=== PATIENT | female | born 2000 | race Caucasian/White ===

== ENCOUNTER 2020-12-17 20:38 | Emergency (ER) | payer MEDICAID, SELFPAY ==
[2020-12-17] VITALS (10 sets, daily range): BP systolic 121–135; BP diastolic 80–98; PULSE 88–98; RESP 16; TEMP 37.2–37.3; O2SAT 100; BMI 24.8
[2020-12-17 21:06] LABS: Microscopic, Urine URINE MICROSCOPIC (MICROSCOPIC)
[2020-12-17 21:15] LABS: Appearance,Urine CLEAR (Clear); Bilirubin,Urine Negative (Negative); Blood, Urine Negative (Negative); Color,Urine YELLOW (Yellow); Glucose,Urine (UA) 3+ (Negative); Ketones,Urine 1+ (Negative); Leukocyte Esterase,Urine Negative (Negative); Nitrate,Urine Negative (Negative); PH,Urine 6.5 (5.0-8.5); Protein,Urine Negative (Negative); Urobilinogen,Urine 0.2 EU/dl (0.2)
--- NOTE | 2020-12-17 21:15 | HMH.EDNVD ---
ED Disposition Clinical Impression: Nausea alone Disposition: Home, Self-Care Condition on Discharge: Good Instructions: DI for Nausea -- Adult Additional Instructions: fluids and see pcp for follow up Referrals: Aki Guevara [Primary Care Provider] - - Critical Care Critical Care Time: No Attestation: On 12/17/20, the high probability of a clinically significant, sudden or life threatening deterioration of the following system(s) required my full and direct attention, intervention and personal management. The time I documented below is in addition to time spent performing reported procedures but includes the following listed in this critical care notation. Medical Decision Making - Medical Records Medical records reviewed: Yes: I reviewed the patient's medical records. - Sanya Inquiry Pt receiving controlled substance: No Vital Signs: 12/17/20 20:40 Temperature 99.1 F Temperature Source Oral Pulse Rate [Left Radial] 98 H Respiratory Rate 16 Blood Pressure [Right Arm] 125/98 H Blood Pressure Mean [Right Arm] 107 Blood Pressure Source [Right Arm] Automatic Cuff Blood Pressure Position [Right Arm] Sitting 02 Sat by Pulse Oximetry 100 Oxygen Delivery Method Room Air - Lab Data Lab results reviewed: Yes: I reviewed the patient's lab results. Lab Results 12/17/20 20:49: Urine Color Yellow, Urine Appearance Clear, Urine pH 6.5, Ur Specific [place] 1.010, Urine Protein Negative, Urine Glucose (UA) 3+, Urine Ketones 1+, Urine Blood Negative, Urine Nitrate Negative, Urine Bilirubin Negative, Urine Urobilinogen 0.2, Ur Leukocyte Esterase Negative, Urine Mucus Trace 12/17/20 20:49: Urine HCG, Qual Negative 12/17/20 20:49: Urine Opiates Screen Negative, Urine Methadone Screen Negative, Ur Barbituates Screen Negative, Ur Phencyclidine Scrn Negative, Ur Amphetamines Screen Negative, U Benzodiazepines Scrn Negative, Urine Cocaine Screen Negative, U Marijuana (THC) Screen Negative 12/17/20 21:20: WBC 9.5, RBC 4.40, Hgb 11.5 L, Hct 36.7 L, MCV 83.5, MCH 26.1 L, MCHC 31.3 L, RDW 16.1, Plt Count 227, MPV 11.5 H, Neut % (Auto) 69.1, Lymph % (Auto) 22.6, [place] % (Auto) 5.1, Eos % (Auto) 2.1, Baso % (Auto) 1.0, Neut # (Auto) 6.6, Lymph # (Auto) 2.2, [place] # (Auto) 0.5, Eos # (Auto) 0.2, Baso # (Auto) 0.1, ESR 20 12/17/20 21:20: Acetone Level None detected 12/17/20 21:47: Sodium 136, Potassium 3.8, Chloride 102, Carbon Dioxide 24, Anion Gap 13.8, BUN 10, Creatinine 0.70, Estimated Creat Clear 106, Estimated GFR 107, Est GFR ( Amer) 129, Glucose 348 H, Calcium 9.0, Total Bilirubin 0.4, AST 30, ALT 17, Alkaline Phosphatase 96, C-Reactive Protein 7.2 H, Total Protein 7.2, Albumin 4.2, Globulin 3.0, Albumin/Globulin Ratio 1.4, Amylase 65, Lipase 33 Result diagrams: 12/17/20 21:20 12/17/20 21:47 Orders (Tests/Meds): ED MEDICATIONS Generic Name Dose Route Start Last Admin Trade Name Freq PRN Reason Stop Dose Admin Sodium Chloride 1,000 mls @ 999 mls/hr 12/17/20 21:00 12/17/20 22:00 Sod Chlor 0.9% 1000ml Bag IV 12/17/20 22:00 999 mls/hr .[id number] ROCKY Administration Discontinued Medications Generic Name Dose Route Start Last Admin Trade Name Freq PRN Reason Stop Dose Admin Diatrizoate Meglum/Diatrizoate Sod 30 ml 12/17/20 22:13 12/17/20 22:18 Diatrizoate Rahel 66% & Diatrizoate Na 10% 30ml Udc PO 12/17/20 22:14 30 ml ONCE ONE Administration Promethazine HCl 12.5 mg 12/17/20 21:40 12/17/20 22:00 Promethazine Hcl 25mg/Ml 1ml Vial IV 12/17/20 21:41 12.5 mg ONCE ONE Administration Sodium Chloride 25 ml 12/17/20 21:40 12/17/20 22:00 Sodium Chloride 0.9% 25ml Bag IV 12/17/20 21:41 25 ml ONCE ONE Administration ORDERS Category Date Time Status CT abdomen pelvis w con Stat Cat Scan 12/17/20 22:13 Ordered Amylase Stat Lab 12/17/20 21:47 Results C-Reactive Protein Stat Lab 12/17/20 21:47 Results Comprehensive Metabolic Panel Stat Lab 12/17/20 21:47 Results Lipase S
[2020-12-17 21:18] LABS: Mucus,Urine Trace /lpf; Urine Pregnancy, HCG Qual. Negative (Negative)
[2020-12-17 21:26] LABS: Barbiturates Screen,Urine Negative ng/ml (<200); Benzodiazepines Screen,Urine Negative ng/ml (<200)
[2020-12-17 21:27] LABS: Amphetamine/Metha Screen,Urine Negative ng/ml (<1000)
[2020-12-17 21:28] LABS: Cannabinoid Screen,Urine Negative ng/ml (<50); Methadone Screen,Urine Negative ng/ml (<300)
[2020-12-17 21:29] LABS: Cocaine Screen,Urine Negative ng/ml (<300)
[2020-12-17 21:30] LABS: Opiate Screen,Urine Negative ng/ml (<300); Phencyclidine Screen,Urine Negative ng/ml (<25)
[2020-12-17 21:30] LABS: Basophils # 0.1 K/mm3 (0-0.2); Eosinophils # 0.2 K/mm3 (0.0-0.4); Eosinophils % 2.1 % (0.1-12.0); Hematocrit 36.7 % (37.0-47.0); Hemoglobin 11.5 g/dL (12.2-16.2); Lymphocytes # 2.2 K/mm3 (0.7-4.5); Lymphocytes % 22.6 % (10-50); Mean Corpuscular HGB Conc 31.3 g/dL (31.8-35.4); Mean Corpuscular Hemoglobin 26.1 pg (27.0-31.2); Mean Corpuscular Volume 83.5 fl (81-99); Mean Platelet Volume 11.5 fl (7.4-10.4); Monocytes # 0.5 K/mm3 (0.1-1.0); Monocytes % 5.1 % (1.7-9.3); Neutrophils # 6.6 K/mm3 (1.8-7.8); Neutrophils % 69.1 % (37.0-80.0); Platelet Count 227 K/mm3 (142-424); Red Cell Distribution Width 16.1 % (11.5-17.5); White Blood Count 9.5 K/mm3 (4.5-13.0)
[2020-12-17 21:37] LABS: Acetone, Serum (Rapid) None Detected (None Detect)
[2020-12-17 21:58] LABS: Erythrocyte Sedimentation Rate 20 mm/hr (0-20)
[2020-12-17 22:06] LABS: Alanine Aminotransferase 17 U/L (12-78); Albumin Level 4.2 g/dl (3.5-5.0); Albumin/Globulin Ratio 1.4 (1.1-1.8); Alkaline Phosphatase 96 U/L (38-126); Amylase 65 U/L (30-110); Anion Gap 13.8 mEq/L (5-15); Aspartate Amino Transferase 30 U/L (14-36); Bilirubin,Total 0.4 mg/dl (0.2-1.3); Blood Urea Nitrogen 10 mg/dl (7-17); Carbon Dioxide 24 mmol/L (22.0-30.0); Chloride 102 mmol/L (98-107); Creatinine Clearance Estimated 106 mL/min (50-200); Estimated Glomerular Filt Rate 107 ml/min (>60); GFR (African American) 129 ML/MIN (>60); Glucose 348 mg/dl (74-100); Lipase 33 U/L (23-300); Potassium 3.8 mmoL/L (3.5-5.1); Sodium 136 mmol/L (136-145); Total Protein,Serum 7.2 g/dl (6.3-8.2)
[2020-12-17 22:12] LABS: C-Reactive Protein 7.2 mg/L (0-4)
--- NOTE | 2020-12-17 22:25 | PC.NURSE ---
Pt refused PO contrast and said she doesn't want to wait for a ct scan. aware.
[2020-12-17 22:27] LABS: Procalcitonin 0.049 ng/mL (0.0-2.0)
== END 2020-12-17 22:45 | disposition home or self-care (01) ==
PROVIDERS: Emergency Provider Emergency Medicine; PCP Family Medicine
DX: R11.2 Nausea with vomiting, unspecified (principal); Z88.8 Allergy status to other drugs, medicaments and biological substances
CPT/HCPCS: 36415; 80053; 80305; 81001; 81025; 82009; 82150; 83690; 84145; 85025; 85651; 86140; 96365; 96375; 99282

== ENCOUNTER 2021-06-10 13:47 | Emergency (ER) | payer MEDICAID, SELFPAY ==
[2021-06-10 13:47] VITALS: BP 92/59; PULSE 91; RESP 18; TEMP 35.4; O2SAT 98; BMI 20.7
--- NOTE | 2021-06-10 13:54 | PC.NURSE ---
Called [facility] and spoke with medical records and they will be sending them at this time.
--- NOTE | 2021-06-10 14:16 | PC.NURSE ---
MULTIPLE WARM BLANKETS PLACED ON PT DUE TO TEMP
[2021-06-10 14:27] VITALS: BP 85/64; PULSE 84; RESP 18; O2SAT 96
[2021-06-10 14:30] VITALS: BP 90/68; PULSE 66; RESP 12; O2SAT 98
--- NOTE | 2021-06-10 14:36 | HMH.EDGENADL ---
ED Disposition Clinical Impression: Hypoglycemia Disposition: Home, Self-Care Condition on Discharge: Fair Instructions: DI for Hypoglycemia Additional Instructions: Continue checking blood sugar and administering insulin per her usual protocol. Eat regular meals and make sure you drink plenty of fluids. Return to the emergency department if your symptoms return. Follow-up with primary care provider on Sunday. Referrals: Provider,Referral, [Referring] - - Critical Care Critical Care Time: No Attestation: On 06/10/21, the high probability of a clinically significant, sudden or life threatening deterioration of the following system(s) required my full and direct attention, intervention and personal management. The time I documented below is in addition to time spent performing reported procedures but includes the following listed in this critical care notation. Medical Decision Making - Medical Records Medical records reviewed: Yes: I reviewed the patient's medical records. MR Comment: Urgency department note from [facility] reviewed from 06/09/2021 - Sanya Tejada Pt receiving controlled substance: No Vital Signs: 06/10/21 13:47 06/10/21 14:27 06/10/21 14:30 Temperature 95.7 F L Temperature Source Oral Pulse Rate 84 66 Pulse Rate [Radial] 91 H Respiratory Rate 18 18 12 Blood Pressure 85/64 L 90/68 L Blood Pressure [Right Arm] 92/59 L Blood Pressure Mean [Right Arm] 70 Blood Pressure Position [Right Arm] Sitting 02 Sat by Pulse Oximetry 98 96 98 Oxygen Delivery Method Room Air Room Air 06/10/21 15:00 Temperature Temperature Source Pulse Rate 87 Pulse Rate [Radial] Respiratory Rate 12 Blood Pressure 99/72 L Blood Pressure [Right Arm] Blood Pressure Mean [Right Arm] Blood Pressure Position [Right Arm] 02 Sat by Pulse Oximetry 97 Oxygen Delivery Method Room Air - Lab Data Lab Results 06/10/21 14:57: VBG pH 7.30 L, VBG pCO2 37.0, VBG pO2 74.5 H, VBG HCO3 17.6 L, VBG Total CO2 18.8 L, VBG O2 Saturation 92.9 H, VBG Base Excess -8.9 L 06/10/21 15:32: WBC 11.9 H, RBC 4.59, Hgb 12.3, Hct 40.0, MCV 87.0, MCH 26.7 L, MCHC 30.6 L, RDW 15.1, Plt Count 187, MPV 9.7, Neut % (Auto) 88.5 H, Lymph % (Auto) 8.9 L, [place] % (Auto) 2.0, Eos % (Auto) 0.1, Baso % (Auto) 0.5, Neut # (Auto) 10.6 H, Lymph # (Auto) 1.1, [place] # (Auto) 0.2, Eos # (Auto) 0.0, Baso # (Auto) 0.1, Total Counted 100, Neutrophils % (Manual) 74, Band Neutrophils % 7.0, Lymphocytes % (Manual) 16, Monocytes % (Manual) 3, Platelet Estimate Normal, Spherocytes 1+ 06/10/21 15:32: Sodium 133 L, Potassium 4.0, Chloride 96 L, Carbon Dioxide 21 L, Anion Gap 20.0 H, BUN 17, Creatinine 1.30 H, Estimated Creat Clear 47, Estimated GFR 52 L, Est GFR ( Amer) 63, Glucose 272 H, Calcium 9.2, Total Bilirubin 0.2, AST 115 H, ALT 51, Alkaline Phosphatase 128 H, Total Protein 8.3 H, Albumin 4.6, Globulin 3.7 H, Albumin/Globulin Ratio 1.2 06/10/21 15:32: Acetone Level Small 06/10/21 15:32: Phosphorus 3.6, Magnesium 1.4 L 06/10/21 17:51: POC Glucose 260 H 06/10/21 19:01: Urine HCG, Qual Negative Result diagrams: 06/10/21 15:32 06/10/21 15:32 Orders (Tests/Meds): ED MEDICATIONS Discontinued Medications Generic Name Dose Route Start Last Admin Trade Name Zac PRN Reason Stop Dose Admin Sodium Chloride 2,000 ml 06/10/21 14:57 06/10/21 15:35 Sodium Chloride 0.9% 1000ml Bag IV 06/10/21 14:58 2,000 ml BOLUS ONE Administration ORDERS Category Date Time Status Drug Screen,Urine Stat Lab 06/10/21 19:01 Received Urinalysis and Microscopic Stat Lab 06/10/21 19:01 Received - Reevaluation(s) Time: 19:22 Reevaluation #1: Patient still insisting on going home. Mother is at bedside and states patient has told her the same. Mother is comfortable taking her home. She is well versed in the patient's newest regimen for insulin administration and she will administer the insulin tonight. She says s
--- NOTE | 2021-06-10 14:37 | PC.NURSE ---
lab at bedside
[2021-06-10 15:00] VITALS: BP 99/72; PULSE 87; RESP 12; O2SAT 97
[2021-06-10 15:48] LABS: Chloride 96 mmol/L (98-107); Sodium 133 mmol/L (136-145)
[2021-06-10 15:51] LABS: Alanine Aminotransferase 51 U/L (12-78); Alkaline Phosphatase 128 U/L (38-126); Aspartate Amino Transferase 115 U/L (14-36); Bilirubin,Total 0.2 mg/dl (0.2-1.3); Blood Urea Nitrogen 17 mg/dl (7-17); Carbon Dioxide 21 mmol/L (22.0-30.0); Creatinine Clearance Estimated 47 mL/min (50-200); Estimated Glomerular Filt Rate 52 ml/min (>60); GFR (African American) 63 ML/MIN (>60)
[2021-06-10 15:52] LABS: Albumin Level 4.6 g/dl (3.5-5.0); Albumin/Globulin Ratio 1.2 (1.1-1.8); Basophils # 0.1 K/mm3 (0-0.2); Basophils % 0.5 % (0.1-2.0); Calcium 9.2 mg/dl (8.4-10.2); Eosinophils % 0.1 % (0.1-12.0); Globulin 3.7 g/dL (1.3-3.2); Glucose 272 mg/dl (74-100); Hemoglobin 12.3 g/dL (12.2-16.2); Lymphocytes # 1.1 K/mm3 (0.7-4.5); Lymphocytes % 8.9 % (10-50); Mean Corpuscular HGB Conc 30.6 g/dL (31.8-35.4); Mean Corpuscular Hemoglobin 26.7 pg (27.0-31.2); Mean Platelet Volume 9.7 fl (7.4-10.4); Monocytes # 0.2 K/mm3 (0.1-1.0); Neutrophils # 10.6 K/mm3 (1.8-7.8); Neutrophils % 88.5 % (37.0-80.0); Platelet Count 187 K/mm3 (142-424); Red Blood Count 4.59 M/mm3 (4.20-5.40); Red Cell Distribution Width 15.1 % (11.5-17.5); Total Protein,Serum 8.3 g/dl (6.3-8.2); White Blood Count 11.9 K/mm3 (4.8-10.8)
[2021-06-10 15:54] LABS: MANUAL DIFFERENTIAL MANUAL DIFFERENTIAL (MANUAL DIFF)
[2021-06-10 16:01] LABS: Magnesium 1.4 mg/dl (1.6-2.3); Phosphorous 3.6 mg/dl (2.5-4.5)
[2021-06-10 16:15] LABS: Lymphocytes % 16 % (10-50); Monocytes % 3 % (2-9); Neutrophils % 74 % (42-76); Total Cells Counted 100
[2021-06-10 16:16] LABS: Platelet Estimate Normal; Spherocytes 1+
[2021-06-10 16:29] LABS: Acetone, Serum (Rapid) Small (None Detect)
[2021-06-10 16:36] LABS: VBG Base Excess -8.9 mmol/L (-2.4-2.3); VBG HCO3 17.6 mmol/L (23-30); VBG Oxygen Saturation 92.9 % (50-70); VBG PO2 74.5 mmol/L (28-40); VBG Total CO2 18.8 mmol/L (23-27)
[2021-06-10 18:02] LABS: POC Glucose,Bedside 260 (70-110)
[2021-06-10 19:08] LABS: Microscopic, Urine URINE MICROSCOPIC (MICROSCOPIC)
[2021-06-10 19:13] LABS: Appearance,Urine SL CLOUDY (Clear); Blood, Urine Negative (Negative); Color,Urine YELLOW (Yellow); Glucose,Urine (UA) 3+ (Negative); Ketones,Urine 2+ (Negative); Leukocyte Esterase,Urine Negative (Negative); Nitrate,Urine Negative (Negative); Protein,Urine TRACE (Negative); Urobilinogen,Urine 0.2 EU/dl (0.2)
[2021-06-10 19:18] LABS: Urine Pregnancy, HCG Qual. Negative (Negative)
--- NOTE | 2021-06-10 19:21 | PC.NURSE ---
at bedside speaking with pt's mother
[2021-06-10 19:24] LABS: Amphetamine/Metha Screen,Urine Negative ng/ml (<1000)
[2021-06-10 19:25] LABS: Barbiturates Screen,Urine Negative ng/ml (<200)
[2021-06-10 19:26] LABS: Benzodiazepines Screen,Urine Negative ng/ml (<200)
[2021-06-10 19:27] LABS: Cannabinoid Screen,Urine Positive ng/ml (<50)
[2021-06-10 19:28] LABS: Cocaine Screen,Urine Negative ng/ml (<300)
[2021-06-10 19:29] VITALS: BP 112/71; PULSE 73; RESP 17; TEMP 36.8; O2SAT 98
[2021-06-10 19:29] LABS: Opiate Screen,Urine Negative ng/ml (<300)
[2021-06-10 19:30] LABS: Phencyclidine Screen,Urine Negative ng/ml (<25)
[2021-06-10 19:42] LABS: Methadone Screen,Urine Negative ng/ml (<300)
[2021-06-10 19:47] LABS: Bacteria,Urine 2+ /lpf; Bilirubin,Urine 2+ (Negative)
== END 2021-06-10 19:33 | disposition home or self-care (01) ==
PROVIDERS: Emergency Provider Emergency Medicine; PCP Family Medicine
DX: E11.649 Type 2 diabetes mellitus with hypoglycemia without coma (principal); E11.65 Type 2 diabetes mellitus with hyperglycemia; Z79.4 Long term (current) use of insulin
CPT/HCPCS: 80053; 80305; 81001; 81025; 82009; 82803; 82962; 83735; 84100; 85007; 85025; 87086; 96365; 99283

== ENCOUNTER 2021-10-03 05:04 | Emergency (ER) | payer MEDICAID, SELFPAY ==
[2021-10-03 05:05] VITALS: BP 121/86; PULSE 101; RESP 14; TEMP 36.6; O2SAT 97; BMI 18.3
--- NOTE | 2021-10-03 05:45 | HMH.EDGENADL ---
ED Disposition Clinical Impression: Diabetic peripheral neuropathy Disposition: Home, Self-Care Condition on Discharge: Fair Referrals: Aki Guevara [Primary Care Provider] - - Critical Care Critical Care Time: No Attestation: On , the high probability of a clinically significant, sudden or life threatening deterioration of the following system(s) required my full and direct attention, intervention and personal management. The time I documented below is in addition to time spent performing reported procedures but includes the following listed in this critical care notation. Medical Decision Making - Sanya Inquiry Pt receiving controlled substance: Yes Sanya was queried for this patient: No Risks and benefits of using a controlled substance: were not discussed with pt by me Vital Signs: 10/03/21 05:05 Temperature 97.9 F Temperature Source Oral Pulse Rate [Right Radial] 101 H Respiratory Rate 14 Blood Pressure [Right Arm] 121/86 Blood Pressure Mean [Right Arm] 97 Blood Pressure Source [Right Arm] Automatic Cuff Blood Pressure Position [Right Arm] Sitting 02 Sat by Pulse Oximetry 97 Oxygen Delivery Method Room Air Orders (Tests/Meds): ED MEDICATIONS Discontinued Medications Generic Name Dose Route Start Last Admin Trade Name Zac PRN Reason Stop Dose Admin Hydrocodone Bitart/Acetaminophen 1 tab 10/03/21 06:01 10/03/21 06:27 Hydrocodone/Apap 5/325 Mg Tablet PO 10/03/21 06:02 1 tab ONCE ONE Administration Gabapentin 600 mg 10/03/21 06:02 10/03/21 06:27 Gabapentin 600mg Tablet PO 10/03/21 06:03 600 mg ONCE ONE Administration Ketorolac Tromethamine 15 mg 10/03/21 06:01 10/03/21 06:27 Ketorolac 30mg/Ml Vial IM 10/03/21 06:02 15 mg ONCE ONE Administration Lidocaine 1 each 10/03/21 06:03 10/03/21 06:27 Lidocaine 5% Transdermal Patch TP 10/03/21 06:04 1 each ONCE ONE Administration Medical Decision Narrative: 21 yo female w/ type 1 dm and peripheral neuropathy presents to ed for pain. No trauma. No back pain. Pain characteristics and location consistent with diabetic peripheral neuropathy. NV intact. Will give a morning dose of gabapentin, norco 5 x1, toradol, apply lidocaine patches to feet. Pain improved on reassessment. Advised to follow up with pcp at next available appointment for chronic management of peripheral neuropathy. Given ED return precautions. General Adult HPI - General Chief complaint: PAIN Stated complaint: Pain in feet Time Seen by Provider: 10/03/21 05:40 Mode of Arrival: Ambulatory Limitations: No Limitations Description of Symptoms (Recalled from ER Triage Doc. by RN): Pt reports bilateral foot pain for 3 months. She has chronic neuropathy and states her medication just isnt working tonight. - History of Present Illness HPI narrative: 21 yo female w/ hx type 1 dm c/b peripheral neuropathy presents for pain. patient reports 3 months of worsening bilateral lower extremity pain diagnosed as peripheral neuropathy by pcp that especially worsened in last 5 days. states she takes gabapentin 800 mg bid with last dose 12 hours ago. states her pain feels like burning , is primarily in both feet, occasionally radiating to legs and knees. hurts worse to walk and move and when you touch her feet. patient states she has otherwise been in her normal state of health recently. - Related Data Home Medications Medication Instructions Recorded Confirmed Gabapentin [Gabapentin 400mg Cap] 800 mg PO BID 10/03/21 10/03/21 Allergies Allergy/AdvReac Type Severity Reaction Status Date / Time ondansetron Allergy Unknown Verified 12/17/20 21:58 [From ZOFRAN ( HYDROCHLORIDE)] [facility] History - Hepatitis A Screen Drug use history?: No High risk sexual behaviors?: No History of sexually transmitted infection?: No Currently employed?: No Childcare worker?: No Do you have indoor plumbing?: Yes Do you have electricity?: Yes At
[2021-10-03 06:42] VITALS: BP 113/80; PULSE 92; RESP 16; TEMP 36.6; O2SAT 97
== END 2021-10-03 06:47 | disposition home or self-care (01) ==
PROVIDERS: Emergency Provider Student in an Organized Health Care Education/Training Program; PCP Family Medicine
DX: E11.42 Type 2 diabetes mellitus with diabetic polyneuropathy (principal)
CPT/HCPCS: 96372; 99281

== ENCOUNTER 2021-10-09 01:45 | Emergency (ER) | payer MEDICAID, SELFPAY ==
[2021-10-09 01:46] VITALS: BP 136/99; PULSE 98; RESP 16; TEMP 36.7; O2SAT 97; BMI 17.9
--- NOTE | 2021-10-09 02:05 | HMH.EDGENADL ---
ED Disposition Clinical Impression: Diabetic peripheral neuropathy Disposition: Home, Self-Care Condition on Discharge: Good Instructions: DI for Acute Pain -- Adult Additional Instructions: call pcp for follow up Referrals: Aki Guevara [Primary Care Provider] - - Critical Care Critical Care Time: No Attestation: On 10/09/21, the high probability of a clinically significant, sudden or life threatening deterioration of the following system(s) required my full and direct attention, intervention and personal management. The time I documented below is in addition to time spent performing reported procedures but includes the following listed in this critical care notation. Medical Decision Making - Medical Records Medical records reviewed: Yes: I reviewed the patient's medical records. - Sanya Inquiry Pt receiving controlled substance: No Vital Signs: 10/09/21 01:46 Temperature 98.1 F Temperature Source Oral Pulse Rate [Right] 98 H Respiratory Rate 16 Blood Pressure [Right Arm] 136/99 H Blood Pressure Mean [Right Arm] 111 02 Sat by Pulse Oximetry 97 - Lab Data Lab results reviewed: Yes: I reviewed the patient's lab results. General Adult HPI - General Chief complaint: PAIN Stated complaint: Pain in Feet and up to knees;Diabetic Time Seen by Provider: 10/09/21 02:05 Mode of Arrival: Ambulatory Source of Information: Patient, Medical Record Limitations: No Limitations Description of Symptoms (Recalled from ER Triage Doc. by RN): pt c/o bilateral leg pain that now radiates up to knees. pt has hx diabetic neuropathy and was seen in er 1/3 foe same problem. pt contacted pcp and gabapentin was increased but no helping - History of Present Illness HPI narrative: hx of bilat lower ext pain with hx of neuopathy - no fever or other c/o Onset (ago): day(s) Location: lower extremity Severity: moderate Associated symptoms: denies other symptoms - Related Data Home Medications Medication Instructions Recorded Confirmed Gabapentin [Gabapentin 400mg Cap] 800 mg PO BID 10/03/21 10/03/21 Allergies Allergy/AdvReac Type Severity Reaction Status Date / Time ondansetron Allergy Unknown Verified 12/17/20 21:58 [From ZOFRAN ( HYDROCHLORIDE)] [facility] History - Hepatitis A Screen Drug use history?: No High risk sexual behaviors?: No History of sexually transmitted infection?: No Currently employed?: No Childcare worker?: No Do you have indoor plumbing?: Yes Do you have electricity?: Yes Attestation statement:: This patient has been screened for Hepatitis A risk factors. I have reviewed the patient's past medical history: Yes ROS Obtained: Yes All systems reviewed & no additional complaints - Constitutional Constitutional: Denies fever(s) - Eyes Eyes: Denies change in vision - ENT Ears, Nose, Mouth, and Throat: Denies sore throat - Cardiovascular Cardiovascular: Denies chest pain - Respiratory Respiratory: Denies shortness of breath - Gastrointestinal Gastrointestingal: Denies: abdominal pain - Genitourinary Female Genitourinary: Denies hematuria - Musculoskeletal Musculoskeletal: Denies joint pain - Integumentary/Breasts Skin/Breast: Denies rash - Neurologic Neurologic: Reports as per HPI, Denies headache(s), Reports tingling/numbness/burning sensations, Denies seizure-like activity Physical Exam - General General appearance: alert - Head Head exam: normocephalic - Eye Eye exam: Present: PERRL, EOMI - ENT ENT exam: Present: mucous membranes moist - Neck Neck exam: Present: trachea midline - Respiratory Respiratory exam: Absent: respiratory distress - Cardiovascular Cardiovascular exam: Present: regular rate - Abdominal Exam Abdominal exam: Present: soft - Extremities Exam Extremities exam: Absent: calf tenderness - Neurological Exam Neurological exam: Present: alert, CN II-XII intact - Psychiatric Psychiatric exam
[2021-10-09 02:10] VITALS: BP 125/93; PULSE 95; RESP 18; TEMP 36.7; O2SAT 99
== END 2021-10-09 02:32 | disposition home or self-care (01) ==
PROVIDERS: Emergency Provider Emergency Medicine; PCP Family Medicine
DX: E11.42 Type 2 diabetes mellitus with diabetic polyneuropathy (principal); R03.0 Elevated blood-pressure reading, without diagnosis of hypertension; Z79.4 Long term (current) use of insulin; Z79.899 Other long term (current) drug therapy; E78.5 Hyperlipidemia, unspecified
CPT/HCPCS: 99281

== ENCOUNTER 2022-03-11 17:47 | Emergency (ER) | payer MEDICAID, SELFPAY ==
[2022-03-11 18:45] VITALS: BP 94/70; PULSE 68; RESP 18; TEMP 36.7; O2SAT 98; BMI 24.8
--- NOTE | 2022-03-11 19:17 | HMH.EDUTC ---
[facility] [place] Disposition Clinical Impression: Routine lab draw Disposition: Home, Self-Care Condition on Discharge: Good Additional Instructions: Make sure to follow up with your Family Doctor for results and further instructions Return if needed Straight to ER if any life threatening symptoms Referrals: Aki Guevara [Primary Care Provider] - As needed Time of Disposition: 19:33 Medical Decision Making - Sanya Inquiry Pt receiving controlled substance: No Sanya was queried for this patient: No Vital Signs: 03/11/22 18:45 Temperature 98.1 F Temperature Source Oral Pulse Rate [Right Brachial] 68 Respiratory Rate 18 Blood Pressure [Right Arm] 94/70 L Blood Pressure Mean [Right Arm] 78 Blood Pressure Source [Right Arm] Automatic Cuff Blood Pressure Position [Right Arm] Sitting 02 Sat by Pulse Oximetry 98 Oxygen Delivery Method Room Air Orders (Tests/Meds): ORDERS Category Date Time Status Hemoglobin A1C Stat Lab 03/11/22 19:20 Received Medical Decision Narrative: patient did not want to wait for results States that her PCP would get them and call her with further instructions [facility] HPI - General Stated complaint: Need Blood work A1C Time Seen by Provider: 03/11/22 19:17 Mode of Arrival: Ambulatory Source of Information: Patient Limitations: No Limitations Description of Symptoms (Recalled from Triage Doc. by RN): PATIENT REQUESTING TO HAVE A1C DRAWN FOR PCP HEENT Symptoms (Recalled from RN notes): No Resp Symptoms (Recalled from RN notes): No Skin Symptoms (Recalled from RN notes): No MS Symptoms (Recalled from RN notes): No Functional Status (Recalled from RN notes): WNL - History of Present Illness Provider Complaint: Patient states that her PCP wanted her to come in and get an A1C done but he was in [facility] so he told her to come here and get it drawn and send him the results States that she just wants to get an A1C - Related Data Home Medications Medication Instructions Recorded Confirmed Gabapentin [Gabapentin 400mg Cap] 800 mg PO BID 10/03/21 10/09/21 Atorvastatin Calcium [Lipitor 40mg 40 mg PO HS 10/09/21 10/09/21 Tab] Cetirizine HCl [Zyrtec] 10 mg PO DAILY 10/09/21 10/09/21 Ferrous Sulfate [Ferrous Sulfate 325 mg PO DAILY 10/09/21 10/09/21 325mg Tab] Ibuprofen [Ibuprofen 400mg 400 mg PO Q6HP PRN 10/09/21 10/09/21 Tablet] Insulin Glargine,Hum.rec.anlog 35 unit SQ HS 10/09/21 10/09/21 [Basaglar Eliecerikpen U-100] Insulin Lispro [HumaLOG 100 See Protocol SQ ACHS 10/09/21 10/09/21 units/mL 3mL vial (SSI)] Levothyroxine Sodium 100 mcg PO DAILY 10/09/21 10/09/21 [Levothyroxine 100mcg (0.1MG) Tab] Loperamide HCl [Anti-Diarrheal] 2 mg PO Q6 10/09/21 10/09/21 Sennosides/Docusate Sodium 1 tab PO DAILY 10/09/21 10/09/21 [Stimulant Laxative Plus Tablet] cloNIDine HCL [cloNIDine 0.1mg 0.1 mg PO DAILY 10/09/21 10/09/21 Tablet] Allergies Allergy/AdvReac Type Severity Reaction Status Date / Time ondansetron Allergy Unknown Verified 12/17/20 21:58 [From ZOFRAN ( HYDROCHLORIDE)] - Worker's Comp Is this a Worker's Comp case?: No [facility] History - Hepatitis A Screen Attestation statement:: This patient has been screened for Hepatitis A risk factors. I have reviewed the patient's past medical history: Yes ROS Obtained: Yes All systems reviewed & no additional complaints, Yes Systems reviewed as appropriate & no additional complaints - Constitutional Constitutional: Reports system reviewed and no additional complaints, except as docu, Denies body ache, Denies chills, Denies fever(s) - ENT Ears, Nose, Mouth, and Throat: Reports system reviewed and no additional complaints, except as docu - Cardiovascular Cardiovascular: Reports system reviewed and no additional complaints, except as docu - Respiratory Respiratory: Reports system reviewed and no additional complaints, except as docu - Gastrointestinal Gastrointestingal: Repor
[2022-03-11 19:30] VITALS: BP 94/70; PULSE 68; RESP 18; TEMP 36.7; O2SAT 98
[2022-03-11 19:51] LABS: Hemoglobin A1C 8.6 % (4.0-6.0)
== END 2022-03-11 19:33 | disposition home or self-care (01) ==
PROVIDERS: Emergency Provider Nurse Practitioner; PCP Family Medicine
DX: R73.09 Other abnormal glucose (principal); Z79.1 Long term (current) use of non-steroidal anti-inflammatories (NSAID); Z79.4 Long term (current) use of insulin; Z79.899 Other long term (current) drug therapy; Z88.8 Allergy status to other drugs, medicaments and biological substances
CPT/HCPCS: 36415; 83036; 99213; G0463

== ENCOUNTER 2022-03-18 14:01 | Emergency (ER) | payer MEDICAID, SELFPAY ==
[2022-03-18 14:58] VITALS: BP 107/79; PULSE 93; RESP 17; TEMP 36.7; O2SAT 97; BMI 23.8
--- NOTE | 2022-03-18 15:16 | HMH.EDUTC ---
[facility] [place] Clinical Impression: UTI (urinary tract infection) Qualifiers: Urinary tract infection type: site unspecified Hematuria presence: with hematuria Qualified Code(s): N39.0 - Urinary tract infection, site not specified Disposition: Home, Self-Care Condition on Discharge: Good Instructions: DI for Urinary Tract Infection (UTI), Ondansetron, Phenazopyridine Additional Instructions: Drink plenty of fluids. Take tylenol for pain or fever. Take the medications as directed. Follow up with your regular doctor. GO TO THE ER FOR ANY WORSENING SYMPTOMS The pyridium will make your urine turn orange, this is an expected side effect. It will stain your clothes if it comes into contact with them. We will culture the urine. That will tell what bacteria is causing your infection and which antibiotics will treat it best. Sometimes the first antibiotic we prescribe turns out to not work against different bacteria. So, make sure you follow up within 3 days if you are not getting better. Prescriptions: Sulfamethoxazole/Trimethoprim [Bactrim DS tablet] 1 each PO BID 7 Days #14 tab Transmission Status: Received by [id number] Promethazine HCl [Phenergan 25mg tab] 25 mg PO Q6H PRN #15 tab PRN Reason: Nausea And Vomiting Transmission Status: Received by [id number] Phenazopyridine HCl [Pyridium 200mg Tablet] 200 pow PO TID #6 tab Transmission Status: Received by [id number] Referrals: Aki Guevara [Primary Care Provider] - Time of Disposition: 15:28 Medical Decision Making - Medical Records Medical records reviewed: No: I reviewed the patient's medical records. - Sanya Inquiry Pt receiving controlled substance: No Vital Signs: 03/18/22 14:58 03/18/22 15:32 Temperature 98.0 F 98.0 F Temperature Source Oral Pulse Rate 93 H Pulse Rate [Left Radial] 93 H Respiratory Rate 17 17 Blood Pressure 107/79 L Blood Pressure [Right Arm] 107/79 L Blood Pressure Mean [Right Arm] 88 02 Sat by Pulse Oximetry 97 - Lab Data Lab results reviewed: Yes: I reviewed the patient's lab results. Lab Results 03/18/22 15:16: Urine Color Yellow, Urine Appearance Cloudy, Urine pH 6.0, Ur Specific Miller 1.020, Urine Protein 1+, Urine Glucose (UA) 1+, Urine Ketones Negative, Urine Blood 2+, Urine Nitrate Positive A, Urine Bilirubin Negative, Urine Urobilinogen 0.2, Ur Leukocyte Esterase Trace, Tst Clinic Negative Orders (Tests/Meds): ORDERS Category Date Time Status Urine Culture Stat Micro 03/18/22 14:56 Results Medical Decision Narrative: She waited for 50 minutes to be seen in the ER before she switched to the [facility] to be seen. [facility] [place] - General Stated complaint: stomach pains Time Seen by Provider: 03/18/22 15:16 Description of Symptoms (Recalled from Triage Doc. by RN): patient comes in for stomach pains that have been going on for a week. patient states that she does hacve IBS and she thought it was just that. the pain has continued to get worse HEENT Symptoms (Recalled from RN notes): No Resp Symptoms (Recalled from RN notes): No Skin Symptoms (Recalled from RN notes): No MS Symptoms (Recalled from RN notes): No Functional Status (Recalled from RN notes): wnl - History of Present Illness Provider Complaint: She c/o lower abdomen tenderness and urinary frequency for the past 2 days, - Related Data Home Medications Medication Instructions Recorded Confirmed Gabapentin [Gabapentin 400mg Cap] 800 mg PO BID 10/03/21 10/09/21 Atorvastatin Calcium [Lipitor 40mg 40 mg PO HS 10/09/21 10/09/21 Tab] Cetirizine HCl [Zyrtec] 10 mg PO DAILY 10/09/21 10/09/21 Ferrous Sulfate [Ferrous Sulfate 325 mg PO DAILY 10/09/21 10/09/21 325mg Tab] Ibuprofen [Ibuprofen 400mg 400 mg PO Q6HP PRN 10/09/21 10/09/21 Tablet] Insulin Glargine,Hum.rec.anlog 35 unit SQ HS 10/09/21 10/09/21 [Noman Kimble U-100] Insulin Lispro
[2022-03-18 15:17] LABS: Apearance,Urine Cloudy (Clear); Color,Urine Yellow (Yellow); Glucose,Urine (UA) 1+ (Negative); Ketones,Urine Negative (Negative); Protein,Urine 1+ (Negative)
[2022-03-18 15:18] LABS: Bilirubin,Urine Negative (Negative); Blood, Urine 2+ (Negative); UTC Leukocyte Esterase,Urine Trace (Negative); UTC Nitrate,Urine Positive (Negative); UTC Pregnancy Test, Urine Negative (Negative); Urobilinogen,Urine 0.2 EU/dl (0.2)
[2022-03-18 15:32] VITALS: BP 107/79; PULSE 93; RESP 17; TEMP 36.7
== END 2022-03-18 15:39 | disposition home or self-care (01) ==
PROVIDERS: Emergency Provider Nurse Practitioner Family; PCP Family Medicine
DX: N39.0 Urinary tract infection, site not specified (principal); K58.9 Irritable bowel syndrome, unspecified; Z79.4 Long term (current) use of insulin; Z79.899 Other long term (current) drug therapy; Z88.8 Allergy status to other drugs, medicaments and biological substances
CPT/HCPCS: 81003; 81025; 87086; 87088; 87186; 99213; G0463

== ENCOUNTER 2023-08-09 17:08 | Emergency (ER) | payer MEDICAID, SELFPAY ==
[2023-08-09 17:17] VITALS: BP 100/90; PULSE 83; RESP 16; TEMP 36.8; O2SAT 100; BMI 24.8
--- NOTE | 2023-08-09 17:18 | XR_ITS ---
PROCEDURE INFORMATION: Exam: XR Left Foot Exam date and time: 08/09/2023 5:51 PM Age: 23 years old Clinical indication: Pain; Foot; Left; Additional info: Pain, swelling TECHNIQUE: Imaging protocol: Radiologic exam of the left foot. Views: 3 or more views. COMPARISON: CR XR ANKLE LT 2V 08/09/2023 5:51 PM FINDINGS: Bones/joints: No acute fracture or malalignment. Soft tissues: Foot and ankle soft tissue swelling. IMPRESSION: Foot and ankle soft tissue swelling. No acute osseous findings.
--- NOTE | 2023-08-09 17:18 | XR_ITS ---
PROCEDURE INFORMATION: Exam: XR Left Tibia and Fibula Exam date and time: 08/09/2023 5:51 PM Age: 23 years old Clinical indication: Pain; Lower leg; Left; Additional info: Pain, swelling TECHNIQUE: Imaging protocol: Radiologic exam of the left tibia and fibula. Views: 2 views. COMPARISON: CR XR ANKLE LT 2V 08/09/2023 5:51 PM FINDINGS: Bones/joints: No acute fracture or malalignment. Soft tissues: Diffuse left lower extremity soft tissue swelling. IMPRESSION: Diffuse left lower extremity soft tissue swelling. No acute osseous findings.
--- NOTE | 2023-08-09 17:18 | XR_ITS ---
PROCEDURE INFORMATION: Exam: XR Left Ankle Exam date and time: 08/09/2023 5:51 PM Age: 23 years old Clinical indication: Pain; Ankle; Left; Additional info: Pain, swelling TECHNIQUE: Imaging protocol: Radiologic exam of the left ankle. Views: 1 or 2 views. COMPARISON: CR XR FOOT LT MIN 3V 08/09/2023 5:51 PM FINDINGS: Bones/joints: No acute fracture or malalignment. Soft tissues: Foot and ankle soft tissue swelling. IMPRESSION: Foot and ankle soft tissue swelling. No acute osseous findings.
--- NOTE | 2023-08-09 18:29 | HMH.EDGENADL ---
Discharge Plan Disposition Patient Disposition: Home, Self-Care Condition: Good Prescriptions Prescriptions: New naproxen 500 mg tablet 500 mg PO BID Qty: 20 0RF No Action gabapentin 400 MG capsule 800 mg PO BID atorvastatin 40 MG tablet 40 mg PO HS clonidine HCl 0.1 MG tablet 0.1 mg PO DAILY sennosides-docusate sodium 1 EACH tablet 1 tab PO DAILY loperamide 2 MG tablet 2 mg PO Q6 levothyroxine 100 MCG tablet 100 mcg PO DAILY ferrous sulfate 325 MG tablet 325 mg PO DAILY ibuprofen 400 MG tablet 400 mg PO Q6HP PRN (Reason: pain) insulin lispro 100 UNIT/ML solution See Protocol SQ ACHS Protocol: Insulin Corrective High-Dose Regimen Condition: Fingerstick Blood Glucose Dose/Route: Insulin Units Condition: 151-200 mg/dl Dose/Route: 5 units/SQ Condition: 201-250 mg/dl Dose/Route: 7 units/SQ Condition: 251-300 mg/dl Dose/Route: 10 units/SQ Condition: 301-350 mg/dl Dose/Route: 12 units/SQ Condition: 351-400 mg/dl Dose/Route: 15 units/SQ Condition: 401-450 mg/dl Dose/Route: 20 units/SQ Condition: > 450 mg/dl Dose/Route: CALL MD Protocol Text: High Intensity Sliding Scale Insulin insulin glargine 100 UNIT/ML insulin pen 35 unit SQ HS cetirizine 10 MG capsule 10 mg PO DAILY phenazopyridine 200 MG tablet 200 pow PO TID Qty: 6 0RF sulfamethoxazole-trimethoprim 1 EACH tablet 1 each PO BID 7 Days Qty: 14 0RF promethazine 25 MG tablet 25 mg PO Q6H PRN (Reason: Nausea And Vomiting) Qty: 15 0RF Referrals Follow up/Referrals: Edward Magallanes DO [Staff Physician] - See instructions Aki Guevara [Primary Care Provider] - See instructions Activity Restrictions/Add. Instructions Additional Instructions/Restrictions: You were evaluated in the emergency department today. Please use your walking boot as needed for pain. Ice, elevate, and rest your ankle is much as possible. Take Tylenol and naproxen at home as needed for pain and inflammation. Follow-up outpatient with orthopedics. Return to the emergency department for new or worsening symptoms. Clinical Impressions Clinical Impression: Left ankle sprain Instructions Patient Instructions: DI for Ankle Sprain Discharge ED Provider: Anne-Marie Egan General Adult HPI General Chief complaint: PAIN Stated complaint: LT ankle pain Time Seen by Provider: 08/09/23 17:18 Mode of Arrival: Ambulatory Source of Information: Patient Limitations: No Limitations Description of Symptoms (Recalled from ER Triage Doc. by RN): 23 yo F present to ED with left ankle pain symptoms ongoing for 1.5 weeks. pt reports walking down her mothers steps and heard a pop in her ankle. swelling and pain ongoing since then. History of Present Illness HPI narrative: This patient is a 23-year-old female who denies significant past medical history presented to the emergency department for evaluation with concern for left ankle pain. She reports that she felt a pop in her left ankle when going down the steps approximate 1.5 weeks ago. Since then, she has had pain and swelling. It improves with ibuprofen, ice, and elevation, however it always returns. She is having difficulty bearing weight secondary to the pain. She denies any other injuries or concerns. No fevers, redness, warmth, wounds, or other concerns. She has otherwise been well. Related Data Home Medications Medication Instructions Recorded Confirmed gabapentin 400 mg capsule 800 mg PO BID Neuropathy 10/03/21 10/09/21 atorvastatin 40 mg tablet 40 mg PO HS hld 10/09/21 10/09/21 cetirizine 10 mg capsule 10 mg PO DAILY Allergy symptoms 10/09/21 10/09/21 clonidine HCl 0.1 mg tablet 0.1 mg PO DAILY sleep 10/09/21 10/09/21 ferrous sulfate 325 mg (65 mg 325 mg PO DAILY Supplement 10/09/21 10/09/21 iron) tablet ibuprofen 400 mg tablet 400 mg PO Q6HP PRN pain 10/09/21 10/09/21 insulin glargine 100 unit/mL (3 35 u
--- NOTE | 2023-08-09 18:39 | PC.NURSE ---
Pt accepted to [facility] by Dr Mary
[2023-08-09 19:03] VITALS: BP 100/90; PULSE 83; RESP 16; TEMP 36.8
== END 2023-08-09 19:04 | disposition home or self-care (01) ==
PROVIDERS: Emergency Provider Emergency Medicine; PCP Family Medicine
DX: S93.402A Sprain of unspecified ligament of left ankle, initial encounter (principal); M25.572 Pain in left ankle and joints of left foot; X50.0XXA Overexertion from strenuous movement or load, initial encounter
CPT/HCPCS: 73590; 73600; 73630; 99283

== ENCOUNTER 2024-03-18 07:06 | Emergency (ER) | payer MEDICAID, SELFPAY ==
[2024-03-18 07:07] VITALS: BP 121/97; PULSE 83; RESP 16; TEMP 36.7; O2SAT 97; BMI 24.8
--- NOTE | 2024-03-18 07:16 | XR_ITS ---
FINAL REPORT CLINICAL HISTORY: inferior costal margin pain b/l FINDINGS: No acute pulmonary opacity is present. There is no evidence of effusion or pneumothorax. Mediastinum is unremarkable. Heart size is normal. IMPRESSION: No acute abnormality. Reviewed, Interpreted and Dictated by Janet Gonzáles MD Transcribed by Adali Richards Authenticated and . [facility]
--- NOTE | 2024-03-18 07:19 | HMH.EDGENADL ---
Discharge Plan Disposition Patient Disposition: Home, Self-Care Chief Complaint: Abdominal Pain Prescriptions Prescriptions: No Action naproxen 500 mg tablet 500 mg PO BID Qty: 20 0RF gabapentin 400 MG capsule 800 mg PO BID atorvastatin 40 MG tablet 40 mg PO HS clonidine HCl 0.1 MG tablet 0.1 mg PO DAILY sennosides-docusate sodium 1 EACH tablet 1 tab PO DAILY loperamide 2 MG tablet 2 mg PO Q6 levothyroxine 100 MCG tablet 100 mcg PO DAILY ferrous sulfate 325 MG tablet 325 mg PO DAILY ibuprofen 400 MG tablet 400 mg PO Q6HP PRN (Reason: pain) insulin lispro 100 UNIT/ML solution See Protocol SQ ACHS Protocol: Insulin Corrective High-Dose Regimen Condition: Fingerstick Blood Glucose Dose/Route: Insulin Units Condition: 151-200 mg/dl Dose/Route: 5 units/SQ Condition: 201-250 mg/dl Dose/Route: 7 units/SQ Condition: 251-300 mg/dl Dose/Route: 10 units/SQ Condition: 301-350 mg/dl Dose/Route: 12 units/SQ Condition: 351-400 mg/dl Dose/Route: 15 units/SQ Condition: 401-450 mg/dl Dose/Route: 20 units/SQ Condition: > 450 mg/dl Dose/Route: CALL MD Protocol Text: High Intensity Sliding Scale Insulin insulin glargine 100 UNIT/ML insulin pen 35 unit SQ HS cetirizine 10 MG capsule 10 mg PO DAILY phenazopyridine 200 MG tablet 200 pow PO TID Qty: 6 0RF sulfamethoxazole-trimethoprim 1 EACH tablet 1 each PO BID 7 Days Qty: 14 0RF promethazine 25 MG tablet 25 mg PO Q6H PRN (Reason: Nausea And Vomiting) Qty: 15 0RF Referrals Follow up/Referrals: Aki Guevara [Primary Care Provider] - See instructions Activity Restrictions/Add. Instructions Additional Instructions/Restrictions: At this time it was felt you are safe to be discharged home. If new or worsening symptoms please do not hesitate to return the emergency department. Clinical Impressions Clinical Impression: Abdominal pain Instructions Patient Instructions: DI for Acute Abdominal Pain Discharge ED Provider: Eduin Woodward General Adult HPI General Chief complaint: Abdominal Pain Stated complaint: stomach and back pain, pain under ribs Time Seen by Provider: 03/18/24 07:08 Mode of Arrival: Ambulatory Source of Information: Patient Limitations: No Limitations Description of Symptoms (Recalled from ER Triage Doc. by RN): Patient reports having stomach and back pain that woke her up from sleep approx 3-4 hours ago. History of Present Illness HPI narrative: Patient is a 24-year-old female with past medical history of insulin-dependent diabetes, irritable bowel syndrome who presents emergency department for evaluation of stomach pain and back pain. Onset was acute, 4 hours prior to arrival, she has epigastric pain and bilateral inferior costal margin pain that goes through to her back. Past surgical history previous appendectomy. Stooling habits are normal. No other acute complaints at this time. Related Data Home Medications Medication Instructions Recorded Confirmed gabapentin 400 mg capsule 800 mg PO BID Neuropathy 10/03/21 10/09/21 atorvastatin 40 mg tablet 40 mg PO HS hld 10/09/21 10/09/21 cetirizine 10 mg capsule 10 mg PO DAILY Allergy symptoms 10/09/21 10/09/21 clonidine HCl 0.1 mg tablet 0.1 mg PO DAILY sleep 10/09/21 10/09/21 ferrous sulfate 325 mg (65 mg 325 mg PO DAILY Supplement 10/09/21 10/09/21 iron) tablet ibuprofen 400 mg tablet 400 mg PO Q6HP PRN pain 10/09/21 10/09/21 insulin glargine 100 unit/mL (3 35 unit SQ HS Diabetes 10/09/21 10/09/21 mL) subcutaneous pen insulin lispro 100 unit/mL See Protocol SQ ACHS Diabetes 10/09/21 10/09/21 subcutaneous solution levothyroxine 100 mcg tablet 100 mcg PO DAILY thyroid 10/09/21 10/09/21 loperamide 2 mg tablet 2 mg PO Q6 sleep 10/09/21 10/09/21 sennosides 8.6 mg-docusate sodium 1 tab PO DAILY constipation 10/09/21 10/09/21 50 mg tablet Previous Rx's Medication Instructions Recorded phenazopyridine 200 mg tablet 200 pow PO TID #6 tabs 03/18/22 promethazine 25 mg tablet 25 mg PO Q6H PRN Nausea And 03/18/22 Vomiting #15 tabs sulfamethoxazole 800 1 each PO BID 7 days #14 tabs 03/18/22 mg-trimethoprim 160 mg tablet naproxen 500 mg tablet 500 mg PO BID #20 tabs 08/09/23 Allergies Allergy/AdvReac Type Severity Reaction Status Date / Time ondansetron Allergy Unknown Verified 12/17/20 21:58 [From ZOFRAN ( HYDROCHLORIDE)] [facility] Disclaimer: The information contained in this section may have been updated after the patient was seen, as this information can be updated by other users. Social History (Updated 08/09/23 @ 22:16 by Anne-Marie Egan DO) Smoking Status: Unknown if ever smoked alcohol intake: never current occupational status: employed Travel in the last 8 weeks: None ROS Obtained: Yes Systems reviewed as appropriate & no additional complaints except as documented Physical Exam General General appearance: alert and in no apparent distress Head Head exam: atraumatic and normocephalic Eye Eye exam: Present PERRL and EOMI ENT ENT exam: Present mucous membranes moist Neck Neck exam: Present normal inspection Chest Chest inspection: Present normal inspection and symmetric chest wall rise Respiratory Respiratory exam: Present normal lung sounds bilaterally; Absent respiratory distress Cardiovascular Cardiovascular exam: Present regular rate and normal rhythm Abdominal Exam Abdominal exam: Present soft; Absent tenderness Extremities Exam Extremities exam: Present normal inspection Neurological Exam Neurological exam: Present alert Psychiatric Psychiatric exam: Present normal affect Skin Skin exam: Present warm and dry Medical Decision Making Sanya Inquiry Pt receiving controlled substance: No Vital Signs: 03/18/24 07:07 03/18/24 08:02 03/18/24 08:31 Temperature 98.0 F Temperature Source Oral Pulse Rate 74 83 Pulse Rate [Radial] 83 Respiratory Rate 16 Blood Pressure 124/88 100/68 L Blood Pressure [Right Arm] 121/97 H Blood Pressure Mean [Right Arm] 105 Blood Pressure Source [Right Arm] Automatic Cuff Blood Pressure Position [Right Arm] Sitting 02 Sat by Pulse Oximetry 97 97 96 Oxygen Delivery Method Room Air 03/18/24 09:00 Temperature Temperature Source Pulse Rate 81 Pulse Rate [Radial] Respiratory Rate Blood Pressure 103/74 L Blood Pressure [Right Arm] Blood Pressure Mean [Right Arm] Blood Pressure Source [Right Arm] Blood Pressure Position [Right Arm] 02 Sat by Pulse Oximetry 96 Oxygen Delivery Method Lab Data Lab Results 03/18/24 07:24: WBC 9.6, RBC 4.55, Hgb 14.2, Hct 44.1, MCV 96.9, MCH 31.1, MCHC 32.1, RDW 14.2, Plt Count 290, MPV 10.1, Neut % (Auto) 78.8, Lymph % (Auto) 13.7, Giles % (Auto) 4.5, Eos % (Auto) 2.1, Baso % (Auto) 0.8, Neut # (Auto) 7.6, Lymph # (Auto) 1.3, Giles # (Auto) 0.4, Eos # (Auto) 0.2, Baso # (Auto) 0.1, D-Dimer 0.28, Sodium 134 L, Potassium 4.3, Chloride 98, Carbon Dioxide 30, Anion Gap 10.3, BUN 13, Creatinine 1.10 H, Estimated Creat Clear 65, Estimated GFR 61, Est GFR ( Amer) 74, Glucose 318 H, Calcium 9.3, Total Bilirubin 0.6, AST 104 H, ALT 81 H, Alkaline Phosphatase 100, Troponin I < 0.01, Total Protein 7.9, Albumin 4.5, Globulin 3.4 H, Albumin/Globulin Ratio 1.3, Lipase 51, Serum HCG, Qual Negative 03/18/24 08:01: Urine Color Yellow, Urine Appearance Clear, Urine pH 6.5, Ur Specific [place] 1.020, Urine Protein Negative, Urine Glucose (UA) 2+, Urine Ketones 1+, Urine Blood Negative, Urine Nitrate Negative, Urine Bilirubin Negative, Urine Urobilinogen 1.0, Ur Leukocyte Esterase Negative, Urine WBC Occasional, Ur Squamous Epith Cells 5-10, Urine Bacteria Trace 03/18/24 07:24 03/18/24 07:24 Orders (Tests/Meds): ED MEDICATIONS Discontinued Medications Generic Name Dose Route Start Last Admin Trade Name Zac PRN Reason Stop Dose Admin Acetaminophen 1,000 mg 03/18/24 07:19 03/18/24 07:27 Acetaminophen 500mg Tab PO 03/18/24 07:20 1,000 mg ONCE ONE Administration Belladonna Alkaloids 60 ml 03/18/24 07:16 03/18/24 07:26 Belladonna Alkaloids 60 Ml Ml PO 03/18/24 07:17 60 ml ONCE ONE Administration Dicyclomine HCl 20 mg 03/18/24 07:19 03/18/24 07:27 Dicyclomine 10mg Capsule PO 03/18/24 07:20 20 mg ONCE ONE Administration Ketorolac Tromethamine 30 mg 03/18/24 07:16 03/18/24 07:26 Ketorolac 30mg/Ml Vial IV 03/18/24 07:17 30 mg ONCE ONE Administration Metoclopramide HCl 10 mg 03/18/24 08:54 03/18/24 09:36 Metoclopramide Hcl 10mg/2ml Vial IVP 03/18/24 08:55 Not Given ONCE ONE Promethazine HCl 12.5 mg 03/18/24 07:16 03/18/24 07:26 Promethazine Hcl 25mg/Ml 1ml Vial IV 03/18/24 07:17 12.5 mg ONCE ONE Administration Sodium Chloride 25 ml 03/18/24 07:16 03/18/24 07:27 Sodium Chloride 0.9% 25ml Bag IV 03/18/24 07:17 25 ml ONCE ONE Administration ORDERS Category Date Time Status CXR --portable [XR chest portable] Stat Exams 03/18/24 07:16 Taken CBC w/Auto Diff [Complete Blood Count Auto Diff] Stat Lab 03/18/24 07:24 Completed CMP [Comprehensive Metabolic Panel] Stat Lab 03/18/24 07:24 Completed D-Dimer Stat Lab 03/18/24 07:24 Completed HCG Qualitative, Serum Stat Lab 03/18/24 07:24 Completed Lipase Stat Lab 03/18/24 07:24 Completed Trop I [Troponin I] Stat Lab 03/18/24 07:24 Completed Troponin I Q3H Lab 03/18/24 10:30 Ordered Troponin I Q3H Lab 03/18/24 13:30 Ordered UA [Urinalysis and Microscopic] Stat Lab 03/18/24 08:01 Completed ECG Data Tracing #1: Independently interpreted by me, rate 76, rhythm is regular, axis is normal, no ST elevation. Initial local contiguous leads, QTc 388. Medical Decision Narrative: In summary patient is a 24-year-old female past medical history described above who presents emergency department for evaluation of epigastric pain, back pain, inferior costal margin chest pain. Patient is hemodynamically stable nontoxic-appearing upon arrival, afebrile. Differential diagnosis includes pancreatitis, nonspecific viral syndrome, worsening of irritable bowel syndrome, pulmonary embolism, among others. Workup be conducted with hematologic labs, chest x-ray, EKG, urinalysis. Initial inventions include Phenergan, multimodal pain control. Initial workup reviewed by me, hematologic labs are nonactionable, D-dimer excludes pulmonary embolism and low risk dissection, no MARY or critical electrolyte abnormality, mild persistent transaminitis, initial troponin undetectably low. Patient has hyperglycemia without elevated anion gap for which she is already on insulin and was made aware. Urinalysis interpreted by me and not consistent with infection. Upon repeat evaluation patient was resting comfortably had underwent p.o. trial was successful. Given this patient is appropriate for discharge at this time was given return precautions. Critical Care Critical Care Time Critical Care Time: No
[2024-03-18] MEDS: BELLADONNA ALKALOIDS 60 ML ML PO (07:26)
[2024-03-18] MEDS: KETOROLAC 30MG/ML VIAL 30 MG IV (07:26)
[2024-03-18] MEDS: PROMETHAZINE HCL 25MG/ML 1ML VIAL 12.5 MG IV (07:26)
[2024-03-18] MEDS: SODIUM CHLORIDE 0.9% 25ML BAG 25 ML IV (07:27)
[2024-03-18] MEDS: ACETAMINOPHEN 500MG TAB 1000 MG PO (07:27)
[2024-03-18] MEDS: DICYCLOMINE 10MG CAPSULE 20 MG PO (07:27)
--- NOTE | 2024-03-18 07:29 | ECG_ITS ---
APPROVED REPORT Exam: Resting ECG HR:76 bpm ECG Measurements Heart Rate 76 AXES GA 156 P 52 QRSd 80 QRS 6 QT 357 T 61 QTc 388 Conclusion SINUS RHYTHM LOW QRS VOLTAGE IN PRECORDIAL LEADS [QRS DEFLECTION < 1.0 mV IN CHEST LEADS] BORDERLINE ECG Electronically signed by : SHANTHI CULLEN, 03/18/2024 13:56:56
[2024-03-18 07:41] LABS: Chloride 98 mmol/L (98-107); Sodium 134 mmol/L (136-145)
[2024-03-18 07:42] LABS: Potassium 4.3 mmoL/L (3.5-5.1)
[2024-03-18 07:44] LABS: Alanine Aminotransferase 81 U/L (12-78); Albumin Level 4.5 g/dl (3.5-5.0); Alkaline Phosphatase 100 U/L (38-126); Anion Gap 10.3 mEq/L (5-15); Aspartate Amino Transferase 104 U/L (14-36); Bilirubin,Total 0.6 mg/dl (0.2-1.3); Blood Urea Nitrogen 13 mg/dl (7-17); Carbon Dioxide 30 mmol/L (22.0-30.0); Creatinine Clearance Estimated 65 mL/min (50-200); Estimated Glomerular Filt Rate 61 ml/min (>60); GFR (African American) 74 ML/MIN (>60); Globulin 3.4 g/dL (1.3-3.2); Lipase 51 U/L (23-300); Total Protein,Serum 7.9 g/dl (6.3-8.2)
[2024-03-18 07:45] LABS: Albumin/Globulin Ratio 1.3 (1.1-1.8); Calcium 9.3 mg/dl (8.4-10.2); Glucose 318 mg/dl (74-100)
[2024-03-18 07:55] LABS: Basophils # 0.1 K/mm3 (0-0.2); Basophils % 0.8 % (0.1-2.0); Eosinophils # 0.2 K/mm3 (0.0-0.4); Eosinophils % 2.1 % (0.1-12.0); HCG Qualitative, Serum Negative (Negative); Hematocrit 44.1 % (37.0-47.0); Hemoglobin 14.2 g/dL (12.2-16.2); Lymphocytes # 1.3 K/mm3 (0.7-4.5); Lymphocytes % 13.7 % (10-50); Mean Corpuscular HGB Conc 32.1 g/dL (31.8-35.4); Mean Corpuscular Hemoglobin 31.1 pg (27.0-31.2); Mean Corpuscular Volume 96.9 fl (81-99); Mean Platelet Volume 10.1 fl (7.4-10.4); Monocytes # 0.4 K/mm3 (0.1-1.0); Monocytes % 4.5 % (1.7-9.3); Neutrophils # 7.6 K/mm3 (1.8-7.8); Neutrophils % 78.8 % (37.0-80.0); Platelet Count 290 K/mm3 (142-424); Red Blood Count 4.55 M/mm3 (4.20-5.40); Red Cell Distribution Width 14.2 % (11.5-17.5); White Blood Count 9.6 K/mm3 (4.8-10.8)
[2024-03-18 08:02] VITALS: BP 124/88; PULSE 74; O2SAT 97
[2024-03-18 08:04] LABS: Microscopic, Urine URINE MICROSCOPIC (MICROSCOPIC)
[2024-03-18 08:05] LABS: Troponin I < 0.01 ng/ml (0.00-0.034)
[2024-03-18 08:08] LABS: Appearance,Urine CLEAR (Clear); Bilirubin,Urine Negative (Negative); Blood, Urine Negative (Negative); Color,Urine YELLOW (Yellow); Glucose,Urine (UA) 2+ (Negative); Ketones,Urine 1+ (Negative); Leukocyte Esterase,Urine Negative (Negative); Nitrate,Urine Negative (Negative); PH,Urine 6.5 (5.0-8.5); Protein,Urine Negative (Negative)
[2024-03-18 08:31] VITALS: BP 100/68; PULSE 83; O2SAT 96
[2024-03-18 08:32] LABS: WBC,Urine Occasional #/hpf (0-3)
[2024-03-18 08:33] LABS: Bacteria,Urine Trace /lpf
[2024-03-18 09:00] VITALS: BP 103/74; PULSE 81; O2SAT 96
[2024-03-18 09:23] LABS: D-Dimer 0.28 ug/mL (0.0-0.5)
[2024-03-18 10:20] VITALS: BP 103/74; PULSE 81; RESP 18; TEMP 36.7; O2SAT 96
== END 2024-03-18 10:21 | disposition home or self-care (01) ==
PROVIDERS: Emergency Provider Emergency Medicine; PCP Family Medicine
DX: R10.13 Epigastric pain (principal); M54.6 Pain in thoracic spine; R74.01 Elevation of levels of liver transaminase levels; E11.65 Type 2 diabetes mellitus with hyperglycemia; Z79.4 Long term (current) use of insulin
CPT/HCPCS: 71045; 80053; 81001; 83690; 84484; 84703; 85025; 85378; 93005; 96374; 96375; 99284; J1885; J2550

== ENCOUNTER 2024-04-25 19:23 | Emergency (ER) | payer MEDICAID, SELFPAY ==
[2024-04-25 19:38] VITALS: BP 104/70; PULSE 87; RESP 16; TEMP 36.9; O2SAT 97; BMI 23.9
[2024-04-25 19:58] VITALS: BP 104/70; PULSE 87; RESP 16; TEMP 36.9; O2SAT 97
--- NOTE | 2024-04-27 20:12 | ED_ITS ---
Discharge Plan Disposition Patient Disposition: Home, Self-Care Condition: Good Prescriptions Prescriptions: No Action naproxen 500 mg tablet 500 mg PO BID Qty: 20 0RF gabapentin 400 MG capsule 800 mg PO BID atorvastatin 40 MG tablet 40 mg PO HS clonidine HCl 0.1 MG tablet 0.1 mg PO DAILY sennosides-docusate sodium 1 EACH tablet 1 tab PO DAILY loperamide 2 MG tablet 2 mg PO Q6 levothyroxine 100 MCG tablet 100 mcg PO DAILY ferrous sulfate 325 MG tablet 325 mg PO DAILY ibuprofen 400 MG tablet 400 mg PO Q6HP PRN (Reason: pain) insulin lispro 100 UNIT/ML solution See Protocol SQ ACHS Protocol: Insulin Corrective High-Dose Regimen Condition: Fingerstick Blood Glucose Dose/Route: Insulin Units Condition: 151-200 mg/dl Dose/Route: 5 units/SQ Condition: 201-250 mg/dl Dose/Route: 7 units/SQ Condition: 251-300 mg/dl Dose/Route: 10 units/SQ Condition: 301-350 mg/dl Dose/Route: 12 units/SQ Condition: 351-400 mg/dl Dose/Route: 15 units/SQ Condition: 401-450 mg/dl Dose/Route: 20 units/SQ Condition: > 450 mg/dl Dose/Route: CALL MD Protocol Text: High Intensity Sliding Scale Insulin insulin glargine 100 UNIT/ML insulin pen 35 unit SQ HS cetirizine 10 MG capsule 10 mg PO DAILY phenazopyridine 200 MG tablet 200 pow PO TID Qty: 6 0RF sulfamethoxazole-trimethoprim 1 EACH tablet 1 each PO BID 7 Days Qty: 14 0RF promethazine 25 MG tablet 25 mg PO Q6H PRN (Reason: Nausea And Vomiting) Qty: 15 0RF Referrals Follow up/Referrals: Cisco Ramos MD [Staff Physician] - See instructions Aki Guevara [Primary Care Provider] - See instructions Activity Restrictions/Add. Instructions Additional Instructions/Restrictions: Drink plenty of fluids. Take tylenol or ibuprofen for pain. Follow up with your regular doctor. Follow up with gynecology. I put in a referral to Dr. Ramos. Please call his office or you light armored reconnaissance officer of choice to make an appointment. GO TO THE ER FOR ANY WORSENING SYMPTOMS Clinical Impressions Clinical Impression: Menorrhagia Instructions Patient Instructions: Heavy Menstrual Bleeding, DI for Menorrhagia Print Language Print Language: Iranian Discharge ED Provider: Brendan Glover [facility] [place], [place] HPI General Stated complaint: vaginal bleeding Mode of Arrival: Ambulatory Source of Information: Patient Limitations: No Limitations Time Seen by Provider: 04/25/24 19:55 Description of Symptoms (Recalled from Triage Doc. by RN): Complaint of having her monthly period for a month now. HEENT Symptoms (Recalled from RN notes): No Resp Symptoms (Recalled from RN notes): No Skin Symptoms (Recalled from RN notes): No MS Symptoms (Recalled from RN notes): No Functional Status (Recalled from RN notes): wnl Related Data Home Medications ?Medication ?Instructions ?Recorded ?Confirmed gabapentin 400 mg capsule 800 mg PO BID Neuropathy 10/03/21 10/09/21 atorvastatin 40 mg tablet 40 mg PO HS hld 10/09/21 10/09/21 cetirizine 10 mg capsule 10 mg PO DAILY Allergy symptoms 10/09/21 10/09/21 clonidine HCl 0.1 mg tablet 0.1 mg PO DAILY sleep 10/09/21 10/09/21 ferrous sulfate 325 mg (65 mg 325 mg PO DAILY Supplement 10/09/21 10/09/21 iron) tablet ibuprofen 400 mg tablet 400 mg PO Q6HP PRN pain 10/09/21 10/09/21 insulin glargine 100 unit/mL (3 35 unit SQ HS Diabetes 10/09/21 10/09/21 mL) subcutaneous pen insulin lispro 100 unit/mL See Protocol SQ ACHS Diabetes 10/09/21 10/09/21 subcutaneous solution levothyroxine 100 mcg tablet 100 mcg PO DAILY thyroid 10/09/21 10/09/21 loperamide 2 mg tablet 2 mg PO Q6 sleep 10/09/21 10/09/21 sennosides 8.6 mg-docusate sodium 1 tab PO DAILY constipation 10/09/21 10/09/21 50 mg tablet Previous Rx's ?Medication ?Instructions ?Recorded phenazopyridine 200 mg tablet 200 pow PO TID #6 tabs 03/18/22 promethazine 25 mg tablet 25 mg PO Q6H PRN Nausea And 03/18/22 Vomiting #15 tabs sulfamethoxazole 800 1 each PO BID 7 days #14 tabs 03/18/22 mg-trimethoprim 160 mg tablet naproxen 500 mg tablet 500 mg PO BID #20 tabs 08/09/23 Allergies Allergy/AdvReac Type Severity Reaction Status Date / Time ondansetron Allergy Unknown Verified 12/17/20 21:58 [From ZOFRAN ( HYDROCHLORIDE)] Worker's Comp Is this a Worker's Comp case?: No [facility]SH [facility] Disclaimer: The information contained in this section may have been updated after the patient was seen, as this information can be updated by other users. Social History (Updated 08/09/23 @ 22:16 by Anne-Marie Egan DO) Smoking Status: Unknown if ever smoked alcohol intake: never current occupational status: employed Travel in the last 8 weeks: None ROS Obtained: Yes All systems reviewed & no additional complaints except as documented Constitutional Constitutional: Denies chills and Denies fever(s) Eyes Eyes: Denies eye discharge ENT Ears, Nose, Mouth, and Throat: Denies dizziness, Denies otalgia and Denies sore throat Cardiovascular Cardiovascular: Denies chest pain Respiratory Respiratory: Denies shortness of breath, Denies chest congestion, Denies cough, Denies stridor and Denies wheezing Gastrointestinal Gastrointestingal: Denies nausea or vomiting Musculoskeletal Musculoskeletal: Reports system reviewed and no additional complaints, except as documented and Denies arthralgias Integumentary/Breasts Skin/Breast: Denies rash Neurologic Neurologic: Denies dizziness and Denies paresthesias Allergic/Immunologic Allergic/Immunologic: Denies wheezing Physical Exam General General appearance: alert and in no apparent distress Head Head exam: atraumatic, normocephalic and normal inspection Eye Eye exam: Present normal appearance, PERRL and EOMI ENT ENT exam: Present normal exam, normal oropharynx, mucous membranes moist, TM's normal bilaterally and normal external ear exam Neck Neck exam: Present normal inspection, full ROM and trachea midline; Absent meningismus or lymphadenopathy Chest Chest inspection: Present normal inspection and symmetric chest wall rise; Absent tenderness Respiratory Respiratory exam: Present normal lung sounds bilaterally; Absent respiratory distress Cardiovascular Cardiovascular exam: Present regular rate and normal rhythm; Absent JVD Abdominal Exam Abdominal exam: Present soft and normal bowel sounds; Absent distention, tenderness or guarding Extremities Exam Extremities exam: Present normal inspection, full ROM and normal capillary refill; Absent calf tenderness Back Exam Back exam: Present normal inspection; Absent tenderness Neurological Exam Neurological exam: Present alert and oriented X3 Psychiatric Psychiatric exam: Present normal affect and normal mood Skin Skin exam: Present warm, dry, intact and normal color Lymphatic Lymphatic Findings: no adenopathy Medical Decision Making Medical Records Medical records reviewed: No I reviewed the patient's medical records. Sanya Inquiry Pt receiving controlled substance: No Vital Signs: 04/25/24 19:38 04/25/24 19:58 Temperature 98.4 F 98.4 F Temperature Source Oral Oral Pulse Rate 87 Pulse Rate [Radial] 87 Respiratory Rate 16 16 Blood Pressure 104/70 L Blood Pressure [Right Arm] 104/70 L Blood Pressure Mean [Right Arm] 81 Blood Pressure Source Automatic Cuff Blood Pressure Source [Right Arm] Automatic Cuff Blood Pressure Position Sitting Blood Pressure Position [Right Arm] Sitting 02 Sat by Pulse Oximetry 97 Oxygen Delivery Method Room Air Room Air Lab Data Lab results reviewed: Yes I reviewed the patient's lab results.
== END 2024-04-25 19:59 | disposition home or self-care (01) ==
PROVIDERS: Emergency Provider Nurse Practitioner Family; PCP Family Medicine
DX: N92.0 Excessive and frequent menstruation with regular cycle (principal)
CPT/HCPCS: 99212; 99213; G0463

== ENCOUNTER 2025-07-06 16:36 | Emergency (ER) | payer MEDICAID, SELFPAY ==
--- OUTSIDE RECORDS SUMMARY | 2005-04-21 | XMS_ITS | Encounter Summary ---
Author Organization [facility] Address [facility] [place] [address] Care Team Providers Care Plant Production Manager Name Role Phone Unavailable Primary Care Provider Unavailabl e Encounter Details Date Type Department Care Team (Late st Contact Info) Description 04/21/2005 Hospital Encounter [facility] Division of Diabetes and Endocrinology [address] [place] [phone] Social History Tobacco Use Types Packs/Day Years Used Date Smoking Tobacco: Never Smokeless Tobacco: Never Alcohol Use Standard Drinks/Week Comments No 0 (1 standard drink = 0.6 oz pur e alcohol) Comments Unknown Sex and Gender Information Value Date Recorded Sex Assigned at Not on file Legal Sex Female 5:17 AM EST Gender Identity Not on file Sexual Orientation Not on file documented as of this encounter Plan of Treatment Not on file documented as of this encounter Visit Diagnoses Not on filedocumented in this encounter
--- OUTSIDE RECORDS SUMMARY | 2005-05-24 | XMS_ITS | Encounter Summary ---
Author Organization [facility] Address [facility] [place] [address] Care Team Providers Care Magazine Designer Name Role Phone Unavailable Primary Care Provider Unavailabl e Encounter Details Date Type Department Care Team (Late st Contact Info) Description 05/24/2005 Hospital Encounter [facility] Division of Diabetes and Endocrinology [address] [place] [phone] Social History Tobacco Use Types Packs/Day [...]
--- OUTSIDE RECORDS SUMMARY | 2005-08-29 01:00 | XMS_ITS | Encounter Summary ---
Author Organization [facility] Address [facility] [place] [address] Care Team Providers Care Senior Erp Consultant Name Role Phone Unavailable Primary Care Provider Unavailabl e Encounter Details Date Type Department Care Team (Late st Contact Info) Description 08/29/2005 Hospital Encounter [facility] Division of Diabetes and Endocrinology [address] [place] [phone] Social History Tobacco Use Types Packs/Day [...]
--- OUTSIDE RECORDS SUMMARY | 2006-02-20 | XMS_ITS | Encounter Summary ---
Author Organization [facility] Address [facility] [place] [address] Care Team Providers Care Standards Engineer Name Role Phone Unavailable Primary Care Provider Unavailabl e Encounter Details Date Type Department Care Team (Late st Contact Info) Description 02/20/2006 Hospital Encounter [facility] Division of Diabetes and Endocrinology [address] [place] [phone] Social History Tobacco Use Types Packs/Day [...] on file documented as of this encounter Miscellaneous Notes * Consent Informed - Edt, Audit [place] - 10/03/2011 10:11 PM EST documented in this encounter Plan of Treatment Not on file documented as of this encounter Visit Diagnoses Not on filedocumented in this encounter
--- OUTSIDE RECORDS SUMMARY | 2006-04-24 | XMS_ITS | Encounter Summary ---
Author Organization [facility] Address [facility] [place] [address] Care Team Providers Care Seamer Elastic Band Name Role Phone Unavailable Primary Care Provider Unavailabl e Encounter Details Date Type Department Care Team (Late st Contact Info) Description 04/24/2006 Hospital Encounter [facility] Division of Diabetes and Endocrinology [address] [place] [phone] Social History Tobacco Use Types Packs/Day [...] as of this encounter Miscellaneous Notes * Orders - Edt, Audit [place] - 07/07/2011 6:41 AM EDT documented in this encounter Plan of Treatment Not on file documented as of this encounter Visit Diagnoses Not on filedocumented in this encounter
--- OUTSIDE RECORDS SUMMARY | 2006-06-21 | XMS_ITS | Encounter Summary ---
Author Organization [facility] Address [facility] [place] [address] Care Team Providers Care Emergency Medicine Medical Director Name Role Phone Unavailable Primary Care Provider Unavailabl e Encounter Details Date Type Department Care Team (Late st Contact Info) Description 06/21/2006 Hospital Encounter [facility] Division of Diabetes and Endocrinology [address] [place] [phone] Social History Tobacco Use Types Packs/Day [...]
--- OUTSIDE RECORDS SUMMARY | 2006-08-31 01:00 | XMS_ITS | Encounter Summary ---
Author Organization [facility] Address [facility] [place] [address] Care Team Providers Care Physiologist Name Role Phone Unavailable Primary Care Provider Unavailabl e Encounter Details Date Type Department Care Team (Late st Contact Info) Description 08/31/2006 Hospital Encounter [facility] Division of Diabetes and Endocrinology [address] [place] [phone] Social History Tobacco Use Types Packs/Day [...]
--- OUTSIDE RECORDS SUMMARY | 2006-12-07 01:00 | XMS_ITS | Encounter Summary ---
Author Organization [facility] Address [address] [place] [address] Care Team Providers Care Mini Shifter Name Role Phone Unavailable Primary Care Provider Unavailabl e Encounter Details Date Type Department Care Team (Late st Contact Info) Description 12/07/[address] [facility] Division of Diabetes and Endocrinology [address] [place] [phone] Social History Tobacco Use Types Packs/Day [...] on file documented as of this encounter Procedures Procedure Name Priority Date/Time Associated Diagnosis Comments HGBA1C BST Routine 12/07/2006 9:36 AM EST documented in this encounter Results * (ABNORMAL) HGBA1C BST (12/07/2006 9:36 AM EST) HGB A1C BST 11.2(H) 3.5 - 6.3 % [facility] Comment: (11/11/99 -- Current) IF RESULT IS < 2.5 OR > 14.0, PHYSICIAN MAY ELECT TO ORDER A HGB A1C BY HPLC FOR A QUANTITATIVE RESULT. THE QUANTITATION REQUIRES A VENOUS BLOOD COLLECTION. 12/07/2006 9:36 AM EST 12/07/2006 9:36 AM EST Narrative [facility] - 12/07/2006 3:26 PM EST Ordered by an unspecified provider. us Audit [place] Edt POINT OF CARE TESTING Final Resu lt [facility] documented in this encounter Visit Diagnoses Not on filedocumented in this encounter
--- OUTSIDE RECORDS SUMMARY | 2007-01-30 | XMS_ITS | Encounter Summary ---
Author Organization [facility] Address [address] [place] [address] Care Team Providers Care Manager Test Name Role Phone Unavailable Primary Care Provider Unavailabl e Encounter Details Date Type Department Care Team (Late st Contact Info) Description 01/30/2007 Hospital Encounter [facility] Division of Diabetes and Endocrinology [address] [place] [phone] Social History Tobacco Use Types Packs/Day [...] Date/Time Associated Diagnosis Comments HGBA1C BST Routine 01/30/2007 9:14 AM EDT documented in this encounter Results * (ABNORMAL) HGBA1C BST (01/30/2007 9:14 AM EDT) HGB A1C BST 9.1(H) 3.5 - 6.3 % [facility] Comment: (11/11/99 -- Current) IF RESULT IS < 2.5 OR > 14.0, PHYSICIAN MAY ELECT TO ORDER A HGB A1C BY HPLC FOR A QUANTITATIVE RESULT. THE QUANTITATION REQUIRES A VENOUS BLOOD COLLECTION. 01/30/2007 9:14 AM EDT 01/30/2007 9:14 AM EDT Kenneth Luz M.D. POINT OF CARE TESTIN G Final Result [facility] documented in this encounter Visit Diagnoses Not on filedocumented in this encounter
--- OUTSIDE RECORDS SUMMARY | 2007-03-18 | XMS_ITS | Encounter Summary ---
Author Organization [facility] Address [address] [place] [address] Care Team Providers Care Education Finance Processor Name Role Phone Unavailable Primary Care Provider Unavailabl e Encounter Details Date Type Department Care Team (Late st Contact Info) Description 03/18/2007 Hospital Encounter [facility] Division of Diabetes and Endocrinology [address] [place] [phone] Social History Tobacco Use Types Packs/Day [...] of this encounter Miscellaneous Notes * Consent Other - Edt, Audit [place] - 05/08/2007 12:04 PM EDT documented in this encounter Plan of Treatment Not on file documented as of this encounter Procedures Procedure Name Priority Date/Time Associated Diagnosis Comments TSH Routine 03/18/2007 4:30 PM EDT HGBA1C BST Routine 03/18/2007 3:02 PM EDT documented in this encounter Results * (ABNORMAL) TSH (03/18/2007 4:30 PM EDT) TSH 8.80(H) 0.51 - 4.91 mIU/ML [facility] 03/18/2007 4:30 PM EDT 03/18/2007 4:30 PM EDT us Verify Md Name CHEMISTRY ORDERABLES Final Resul t [facility] * (ABNORMAL) HGBA1C BST (03/18/2007 3:02 PM EDT) HGB A1C BST 9.1(H) 3.5 - 6.3 % [facility] Comment: (11/11/99 -- Current) IF RESULT IS < 2.5 OR > 14.0, PHYSICIAN MAY ELECT TO ORDER A HGB A1C BY HPLC FOR A QUANTITATIVE RESULT. THE QUANTITATION REQUIRES A VENOUS BLOOD COLLECTION. 03/18/2007 3:02 PM EDT 03/18/2007 3:02 PM EDT us Kenneth Luz M.D. POINT OF CARE TESTIN G Final Result [facility] documented in this encounter Visit Diagnoses Not on filedocumented in this encounter
[2025-07-06 16:41] VITALS: BP 134/85; PULSE 83; RESP 20; TEMP 36.8; O2SAT 100; BMI 24.8
--- NOTE | 2025-07-06 16:49 | ED_ITS ---
<Statement entered by José Luis Burciaga MD - 07/06/25 17:37> I was consulted by the SONYA, and we discussed the complexity of the problems being addressed. I approve the treatment and management plan for this patient's care in the emergency department, thus performing a substantive portion of the medical decision making. José Luis Burciaga MD Discharge Plan Disposition Patient Disposition: Home, Self-Care Condition: Good Prescriptions Prescriptions: No Action naproxen 500 mg tablet 500 mg PO BID Qty: 20 0RF gabapentin 400 MG capsule 800 mg PO BID atorvastatin 40 MG tablet 40 mg PO HS clonidine HCl 0.1 MG tablet 0.1 mg PO DAILY sennosides-docusate sodium 1 EACH tablet 1 tab PO DAILY loperamide 2 MG tablet 2 mg PO Q6 levothyroxine 100 MCG tablet 100 mcg PO DAILY ferrous sulfate 325 MG tablet 325 mg PO DAILY ibuprofen 400 MG tablet 400 mg PO Q6HP PRN (Reason: pain) insulin lispro 100 UNIT/ML solution See Protocol SQ ACHS Protocol: Insulin Corrective High-Dose Regimen Condition: Fingerstick Blood Glucose Dose/Route: Insulin Units Condition: 151-200 mg/dl Dose/Route: 5 units/SQ Condition: 201-250 mg/dl Dose/Route: 7 units/SQ Condition: 251-300 mg/dl Dose/Route: 10 units/SQ Condition: 301-350 mg/dl Dose/Route: 12 units/SQ Condition: 351-400 mg/dl Dose/Route: 15 units/SQ Condition: 401-450 mg/dl Dose/Route: 20 units/SQ Condition: > 450 mg/dl Dose/Route: CALL MD Protocol Text: High Intensity Sliding Scale Insulin insulin glargine 100 UNIT/ML insulin pen 35 unit SQ HS cetirizine 10 MG capsule 10 mg PO DAILY phenazopyridine 200 MG tablet 200 pow PO TID Qty: 6 0RF sulfamethoxazole-trimethoprim 1 EACH tablet 1 each PO BID 7 Days Qty: 14 0RF promethazine 25 MG tablet 25 mg PO Q6H PRN (Reason: Nausea And Vomiting) Qty: 15 0RF Referrals Follow up/Referrals: Aki Guevara [Primary Care Provider, Medical] - See instructions Edward Magallanes DO [Staff Physician, Orthopedics] - See instructions Activity Restrictions/Add. Instructions Additional Instructions/Restrictions: Please return to the emergency department with any worsening signs or symptoms. Please utilize ibuprofen and Tylenol rest ice elevation, utilize knee wrap if needed. Please follow-up with orthopedic provider or your family doctor in the upcoming days/weeks. Could benefit from MRI for her knee if symptoms persist. We will call you with any results of your knee x-ray once full report is available. No news is good news. Clinical Impressions Clinical Impression: Injury of knee, left Instructions Patient Instructions: DI for Knee Pain Print Language Print Language: Omani Discharge ED Provider: José Luis Burciaga General Adult HPI General Chief complaint: PAIN Stated complaint: growth on L hand, Fell on L knee 2 weeks ago Time Seen by Provider: 07/06/25 16:49 Mode of Arrival: Ambulatory Source of Information: Patient Description of Symptoms (Recalled from ER Triage Doc. by RN): tao presents to the ED for left knee pain following a fall that happened at home 2 weeks ago. patient tripped over something and the pain just continues to increase. patient also here to have a growth evaluated inbetween 2 fingers on her left hand. the growth has been there for 2 years and just started bothering her recently. 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 Patient has any fever chills chest pain shortness of breath, no numbness or tingling no back pain, no radicular symptomatology, no saddle anesthesia, no urinary bladder or bowel dysfunction, no abdominal pain no nausea no vomiting, no constipation no diarrhea. Of note patient would also like to be evaluated for a cyst , on her palmar aspect of her left hand, most notable to the third digit around the flexor tendon space, patient states this been present for 2 years , patient denies any numbness tingling redness or swelling to the area, denies any overt pain to the area, denies any pain limited range of motion or range of motion deficits. Patient denies any alcohol tobacco or drug use, patient has past medical history consistent T1DM with diabetic polyneuropathy on gabapentin, hyperlipidemia, otherwise unremarkable, initial triage vitals unremarkable. Please note that above description of symptoms, in this electronic medical record under categorization of recalled from ER triage doctor by RN are reflective of an initial nursing assessment, however, is not reflective of my full history and physical exam that was personally taken and clarified. Consequentially, this preceding description of symptoms, which may include the patient's categorized chief complaint in the EMR, do not reflect my personal clinical impression, and the ultimate description of history of present illness and patient stated complaints should be deferred to this section of the note. Unless stated otherwise or congruent with this section of the note, additional signs, symptoms, or incongruence should be interpreted as inaccurate with my clinical impression. Onset (ago): week(s) Related Data Home Medications ?Medication ?Instructions ?Recorded ?Confirmed gabapentin 400 mg capsule 800 mg PO BID Neuropathy 12/2010/09/21 atorvastatin 40 mg tablet 40 mg PO HS hld 10/09/2106/22 cetirizine 10 mg capsule 10 mg PO DAILY Allergy sympt oms 10/09/21 10/09/21 clonidine HCl 0.1 mg tablet 0.1 mg PO DAILY sleep 06/2210/09/21 ferrous sulfate 325 mg (65 mg 325 mg PO DAILY Suppleme nt 10/09/21 10/09/21 iron) tablet ibuprofen 400 mg tablet 400 mg PO Q6HP PRN pain 06/2210/09/21 insulin glargine 100 unit/mL (3 35 unit SQ HS Diabetes 10/09/21 10/09/21 mL) subcutaneous pen insulin lispro 100 unit/mL See Protocol SQ ACHS Diabet es 10/09/21 10/09/21 subcutaneous solution levothyroxine 100 mcg tablet 100 mcg PO DAILY thyroid 10/09/21 10/09/21 loperamide 2 mg tablet 2 mg PO Q6 sleep 10/09/21 sennosides 8.6 mg-docusate sodium 1 tab PO DAILY const ipation 10/09/21 10/09/21 50 mg tablet Previous Rx's ?Medication ?Instructions ?Recorded phenazopyridine 200 mg tablet 200 pow PO TID #6 tabs 0 03/18/22 promethazine 25 mg tablet 25 mg PO Q6H PRN Nausea And 03/18/22 Vomiting #15 tabs sulfamethoxazole 800 1 each PO BID 7 days #14 tab s 03/18/22 mg-trimethoprim 160 mg tablet naproxen 500 mg tablet 500 mg PO BID #20 tabs 08/09 Allergies Allergy/AdvReac Type Severity Reaction Status Date / Time ondansetron (From ZOFRAN ( Allergy Unknown Verified 12/17/20 21:58 HYDROCHLORIDE)) [facility] Disclaimer: The information contained in this section may have been updated after the patient was seen, as this information can be updated by other users. Social History (Updated 08/09/23 @ 22:16 by Anne-Marie Egan DO) Smoking Status: Never smoker alcohol intake: never current occupational status: employed Travel in the last 8 weeks?: None Have you lived/traveled outside US in past 30 days?: No Contact w/someone who lives/traveled outside US past 30 days?: No Exposure to someone with infectious disease in past 14 days?: No Do you have a fever (greater than 100.4 F or 38 C)?: No Have you tested positive for COVID-19?: No Exposed to someone with COVID-19 in past 14 days?: No Do you have a sore throat?: No Do you have a cough?: No Do you have any weakness?: No Do you have any diarrhea?: No Are you experiencing any unusual bleeding?: No Do you have any muscle aches/pain?: No Do you have any abdominal pain?: No Are you experiencing loss of taste or smell?: No Other Medical History Have you received the Flu Vaccine for this season: No Have you received the Pneumonia Vaccine: No ROS Obtained: Yes All systems reviewed & no additional complaints except as documented Physical Exam General General appearance: alert and in no apparent distress Head Head exam: atraumatic and normocephalic Eye Eye exam: Present PERRL and EOMI ENT ENT exam: Present mucous membranes moist Neck Neck exam: Present normal inspection Chest Chest inspection: Present normal inspection and symmetric chest wall rise Respiratory Respiratory exam: Present normal lung sounds bilaterally; Absent respiratory distress Cardiovascular Cardiovascular exam: Present regular rate and normal rhythm Abdominal Exam Abdominal exam: Present soft; Absent tenderness Extremities Exam Extremities exam: Present normal inspection, full ROM and other (There is what appears to be a flexor tendon sheath ganglion cyst to the palmar aspect of the left hand most notable on the third digit, no pain palpation no erythema, no decreased range of motion, otherwise neurovascular intact, patient has mobile patella, no pain to palpation, no midline joint effu); Absent tenderness or joint swelling Back Exam Back exam: Present normal inspection and full ROM Neurological Exam Neurological exam: Present alert and oriented X3 Psychiatric Psychiatric exam: Present normal affect Skin Skin exam: Present warm and dry Medical Decision Making Medical Records Medical records reviewed: Yes I reviewed the patient's medical records. Screening: Per USPSTF and CDC recommendations, given the prevalence of disease in our region, it is our hospital?s policy to screen for HIV and viral Hepatitis for all patients aged 18 and over and those with ongoing risk factors. Sanya Inquiry Pt receiving controlled substance: No Sanya was queried for this patient: No Vital Signs: 07/06/25 16:41 Temperature 98.2 F Temperature Source Oral Pulse Rate [Right Radial] 83 Respiratory Rate 20 Blood Pressure [Right Arm] 134/85 Blood Pressure Mean [Right Arm] 101 Blood Pressure Source [Right Arm] Automatic Cuff Blood Pressure Position [Right Arm] Sitting 02 Sat by Pulse Oximetry 100 Oxygen Delivery Method Room Air Orders (Tests/Meds): ORDERS Category Date Time Status Knee XR left 3 views [XR knee LT 3V] Stat Exams 07/06/25 16:57 Ordered Medical Decision Narrative: 25-year-old female presents the emergency department with multiple complaints, see HPI for detail past medical history, differential diagnose include but not limited to, ganglion cyst, knee sprain/strain, knee fracture, patella fracture among others. I discussed this patient's case with the attending physician Dr. Burciaga Will obtain x-ray of left knee, ganglion cyst has been going on for around 2 years, no pain with range of motion, thought to be flexor sheath ganglion cyst, noninfected, no other red flag signs or symptoms. I along with the attending physician independently reviewed interpret the patient's knee x-ray, no dislocation, no obvious fracture or acute bony abnormality, I discussed the results with the patient. Discussed that full formal radiology report was not yet available for interrogation. Patient like to be discharged home to self-care I think this appropriate shared decision- making was utilized. We will call the patient with any actionable results of her x-ray. I recommend ibuprofen rest ice elevation and Tylenol as needed for symptomatic relief, will also give patient an Ministerio wrap on discharge. Patient ambulates on affected. Patient voiced understanding and agreement with the current treatment plan/discharge plan, follow-up with orthopedic provider in the upcoming days/weeks. Strict ED return precaution given. Critical Care Critical Care Time Critical Care Time: No
--- OUTSIDE RECORDS SUMMARY | 2025-07-06 16:51 | XMS_ITS | Encounter Summary ---
Author Organization [facility] Address [address] [place] [address] Care Team Providers Care Alterations Workroom Clerk Name Role Phone Aubrey Gayle M.D. Primary Care Provider [phone] Reason for Visit * Reason Comments Medication Refill Encounter Details Date Type Department Care Team (Late st Contact Info) Description 12/07/2014 Refill [facility] Division of Diabetes and Endocrinology [address] [place] [phone] Ameena Corey, STRATEGIC PLANNING CONSULTANT-ASSISTANT DIRECTOR OF NURSING [facility] [address] [place] [address] [place] [phone] Medication Refill Social History Tobacco Use Types Packs/Day Years [...] Diagnoses Not on filedocumented in this encounter Care Teams Alterations Workroom Clerk Relationship Specialty Start Date End Date Aubrey Gayle M.D. [address] [address] PCP - General External Family Practice 04/30/12 documented as of this encounter
--- OUTSIDE RECORDS SUMMARY | 2025-07-06 16:51 | XMS_ITS | Clinical Summary ---
Author Organization [facility] Address [address] [place] [address] Care Team Providers Care Etl Consultant Name Role Phone Aubrey Gayle M.D. Primary Care Provider [phone] Source Comments [facility] is fully rolled out with thefollowing exceptions:[facility] Allergies Active Allergy Reactions Criticality Noted Date Comments Malathion 09/21/2011 Dry scalp Zofran Hives 09/21/2011 Medications promethazine (PHENERGAN) 25 MG tablet 25 mg every 6 hours as needed. 2 Active cloNIDine (CATAPRES) 0.1 MG tablet Take 0.2 mg by mouth every 24 hours. Active buPROPion (WELLBUTRIN-XL) 150 MG XL tablet Take 150 mg by mouth 1 time a day. Active cetirizine (ZyrTEC) 10 MG tablet Take 10 mg by mouth 1 time a day. Active ibuprofen (MOTRIN) 200 MG tablet Take 200 mg by mouth every 6 hours as needed. Active ranitidine (ZANTAC) 75 MG tablet Take 75 mg by mouth 2 times a day. Active Sennosides (SENNA LAX PO) Take 1 Tab by mouth every other day. Active glucagon (GLUCAGON EMERGENCY) 1 MG injection kitIndications:T ype I (juvenile type) diabetes mellitus without mention of complication, uncontrolled For severe hypoglycemia or unable to eat or drink 2 Kit 5 3 Active Urine Glucose-Ketones Test (CHEMSTRIP UGK) STRPIndications: Type I (juvenile type) diabetes mellitus without mention of complication, uncontrolled Use as directed by physician to test urine for ketones if BG >240 or ill 1 Box 11 3 Active Blood Glucose Monitoring Suppl (ONE TOUCH ULTRA 2) W/DEVICE KITIndications:T ype I (juvenile type) diabetes mellitus without mention of complication, uncontrolled Use as directed 1 Kit 0 4 Active levothyroxine (SYNTHROID) 112 MCG tabletIndication s:Hypothyroid Take 1 Tab (112 mcg total) by mouth 1 time a day. 30 Tab 11 4 Active BD U/F III MINI PEN NEEDLE 31G X 5 MM miscellaneousInd ications:Type I (juvenile type) diabetes mellitus without mention of complication, uncontrolled Use as directed to test blood glucose 6-8 times per day. 200 Each 11 4 Active NOVOLOG FLEXPEN 100 UNIT/ML injection pen USE UP TO 50 UNITS DAILY 5 Pen 2 4 Active ONETOUCH DELICA LANCETS 33G MISC USE TO TEST BLOOD SUGAR 10 TIMES PER DAY 200 Each 0 5 Active glucose blood (ONE TOUCH ULTRA TEST) strip Use to test BG's up to 7 times per month. 200 Strip 0 5 Active insulin glargine (LANTUS SOLOSTAR) 100 UNIT/ML injection pen MUST MAKE APPT FOR REFILLS - USE UP TO 50 UNITS PER DAY. 5 Pen 0 5 Active levothyroxine (SYNTHROID) 100 MCG tablet Take 1 Tab (100 mcg total) by mouth 1 time a day MUST MAKE APPT FOR REFILLS. 30 Tab 0 5 Active insulin aspart (NOVOLOG FLEXPEN) 100 UNIT/ML injection pen MUST MAKE APPT FOR REFILLS - USE UP TO 50 UNITS DAILY. 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 Overview (07/25/2012): Growth significantly below MPH Family history of diabetes mellitus type II 07/02 Hypothyroid 07/25/2012 ADHD (attention deficit hyperactivity disorder) 07/25/2012 Overview (07/25/2012): Treated by PCP - on Adderall History of insomnia 07/24/2012 Overview (07/24/2012): Medicated by PCP with clonidine and Seroquel Type I (juvenile type) diabe brenda mellitus without mention of complication, uncontrolled 07/22/2010 Hyperglycemia 11/11/2009 Resolved Problems Problem Noted Date Diagnosed Date Resolved Date Urinary tract infection 11/11/200907/02 Immunizations Immunization Administration Dates Next Due Influenza Vaccine 0.5 mL - f or patients 6 months and older 07/23/2013,07/24/2012 Family History Medical History Relation Name Comments ADHD/ADD Brother 2 brothers Bipolar Disorder Brother 2 brothers Other Father degenerative di sc disease; learning disability Myocardial Infarction Maternal Grandfather enlarged heart Diabetes Type 2 Maternal Grandmother Environmental Allergies Maternal Grandmother Bipolar Disorder Mother Diabetes Type 2 Mother Heart Disease Mother chawla parkenson white syndrome Hypertension Mother Other Mother fibromyalgia; M igraine; Degenerative disc disease SLE Mother Heart Disease Paternal Grandfather Hypertension Paternal Grandfather Diabetes Type 2 Paternal Grandmother Hyperlipidemia Paternal Grandmother Hypertension Paternal Grandmother Relation Name Status Comments Brother 2 brothers Alive Father Alive Maternal Grandfather Maternal Grandmother Alive Mother Alive Paternal Grandfather Alive Paternal Grandmother Alive Social History Tobacco Use Types Packs/Day Years Used Date Smoking Tobacco: Never Smokeless Tobacco: Never Alcohol Use Standard Drinks/Week Comments No 0 (1 standard drink = 0.6 oz pur e alcohol) Comments Unknown Sex and Gender Information Value Date Recorded Sex Assigned at Not on file Legal Sex Female 5:17 AM EST Gender Identity Not on file Sexual Orientation Not on file Last Filed Vital Signs Vital Sign Reading Time Taken Comments Blood Pressure 116/74 11/25/2013 9:45 AM EST Pulse 64 11/25/2013 8:45 AM EST Temperature 36.2 C (97.2 F) 05/16/2012 2:57 PM EDT Respiratory Rate 18 11/25/2013 8:45 AM EST Oxygen Saturation 100% 09/21/2011 3:55 PM EST Inhaled Oxygen Concentration - - Weight 45.7 kg (100 lb 12 oz) 11/25/2013 8:45 AM EST Height 145.3 cm (4' 9.21 ) 11/25/2013 9:45 AM ES T Body Mass Index 21.65 11/25/2013 8:45 AM EST Plan of Treatment Health Maintenance Due Date Last Done Comments MMR IMMUNIZATION (1 of 1 - Standard series) 2001 DTAP/Tdap/Td IMMUNIZATION (1 - Tdap) 2007 VARICELLA IMMUNIZATION (1 of 2 - 13+ 2-dose series) 2013 HPV IMMUNIZATION (1 - 3-dose series) 2015 HEPATITIS B IMMUNIZATION (1 of 3 - 19+ 3-dose series) 2019 AMB SEASONAL FLU VACCINE (#1) 06/01/2025, 07/24/2012 COVID-19 Vaccine (1 - 2023-2 5 season) 2025 HIB IMMUNIZATION Aged Out No longer e ligible based on patient's age to complete this topic IPV IMMUNIZATION Aged Out No longer e ligible based on patient's age to complete this topic MCV4 IMMUNIZATION Aged Out No longer eligible based on patient's age to complete this topic MENINGOCOCCAL B VACCINE Aged Out No l onger eligible based on patient's age to complete this topic PNEUMOCOCCAL IMMUNIZATION Aged Out No longer eligible based on patient's age to complete this topic Respiratory Syncytial Virus (RSV) <20mo Aged Out No longer eligible b ased on patient's age to complete this topic Insurance [facility] Care Teams Etl Consultant Relationship Specialty Start Date End Date [place] [address] PCP - General External Family Practice 04/30/12
--- OUTSIDE RECORDS SUMMARY | 2025-07-06 16:51 | XMS_ITS | Clinical Summary ---
Author Organization [facility] Address [address] [id number] Care Team Providers Care Compatibility Test Engineer Name Role Phone Aki Guevara DO Primary Care Provider [phone] Allergies Active Allergy Reactions Criticality Noted Date Comments Ondansetron Hives,Unknown - Gypsy ent states they do not know rxn details Medium 05/15/2011 Hives Hives Social History Tobacco Use Types Packs/Day Years Used Date Smoking Tobacco: Never Comments Unknown Sex and Gender Information Value Date Recorded Sex Assigned at Not on file Legal Sex Female 6:47 PM EDT Gender Identity Not on file Sexual Orientation Not on file Last Filed Vital Signs Vital Sign Reading Time Taken Comments Blood Pressure 112/84 07/01/2021 3:49 AM EDT Pulse 70 07/01/2021 3:49 AM EDT Temperature 36.6 C (97.9 F) 07/01/2021 3:49 AM EDT Respiratory Rate 16 07/01/2021 3:49 AM EDT Oxygen Saturation 99% 07/01/2021 3:49 AM EDT Inhaled Oxygen Concentration - - Weight 53.1 kg (117 lb 1 oz) 03/20/2016 2:01 PM EDT Height 146.2 cm (4' 9.56 ) 03/20/2016 2:01 PM ED T Body Mass Index 24.84 03/20/2016 2:01 PM EDT Plan of Treatment Not on file Additional Health Concerns Infection Onset Date Last Indicated COVID-19 Rule-Out 07/01/2021 07/01/2021 Insurance [facility] MEDICAID Care Teams Compatibility Test Engineer Relationship Specialty Start Date End Date Aki Guevara DO [address] [place] [address] PCP - General 02/11/21
--- OUTSIDE RECORDS SUMMARY | 2025-07-06 16:51 | XMS_ITS | Encounter Summary ---
Author Organization [facility] Address [address] [place] [address] Care Team Providers Care High School Vice Principal Name Role Phone Aubrey Gayle M.D. Primary Care Provider [phone] Reason for Visit * Reason Onset Date Comments prior authorization: medication 11/11/2014 Encounter Details Date Type Department Care Team (Late st Contact Info) Description 11/11/2014 Telephone [facility] Division of Diabetes and Endocrinology [address] [place] [phone] Urmila Murillo prior authorization: medication Social History Tobacco Use Types Packs/Day Years [...] as of this encounter Miscellaneous Notes * Telephone Encounter - Urmila Murillo -Respiratory Coordinator- - 11/11/2014 10:45 AM EST Received a PA request from [facility] for Novolog FlexPen. Faxed request to [facility]. documented in this encounter Plan of Treatment Not on file documented as of this encounter Visit Diagnoses Not on filedocumented in this encounter Care Teams High School Vice Principal Relationship Specialty Start Date End Date [place] [address] PCP - General External Family Practice 04/30/12 documented as of this encounter
--- OUTSIDE RECORDS SUMMARY | 2025-07-06 16:51 | XMS_ITS | Encounter Summary ---
Author Organization [facility] Address [address] [place] [address] Care Team Providers Care Rn Ed Name Role Phone Aubrey Gayle M.D. Primary Care Provider [phone] Reason for Visit * Reason Comments Medication Refill Encounter Details Date Type Department Care Team (Late st Contact Info) Description 12/07/2014 Refill [facility] Division of Diabetes and Endocrinology [address] [place] [phone] Lula Zaidi, EXPRESSIVE THERAPIST-[facility] Endocrinology [address] [place] [place] [phone] Medication Refill Social History Tobacco Use [...] on filedocumented in this encounter Care Teams Rn Ed Relationship Specialty Start Date End Date Aubrey Gayle M.D. [place] [id number] PCP - General External Family Practice 04/30/12 documented as of this encounter
--- OUTSIDE RECORDS SUMMARY | 2025-07-06 16:52 | XMS_ITS | Encounter Summary ---
Author Organization [place] [address] Care Team Providers Care Survey Director Name Role Phone Aki Guevara DO Primary Care Provider [phone] Reason for Visit * Reason Comments Medication Refill Encounter Details Date Type Department Care Team (Late Contact Info) Description 06/23/2025 Refill [facility] [address] [place] [phone] Nelson Aleman MD [address] [place] [address] Medication Refill Social History Tobacco Use Types Packs/Day Years Used Date Smoking Tobacco: Never Smokeless Tobacco: Never Alcohol Use Standard Drinks/Week Comments No 0 (1 standard drink = 0.6 oz pur e alcohol) Overall Financial Resource Strain (CARDI) Answe r Date Recorded How hard is it for you to pa y for the very basics like food, housing, medical care, and heating? Somewhat hard 08/04/2023 PHQ-2 Answer Date Recorded PHQ-2 Total Score 0 02/26/2025 [facility] - Occupational Stress Questionnaire Answer Date Recorded Do you feel stress - tense, restless, nervous, or anxious, or unable to sleep at night because your mind is troubled all the time - these days? Only a little 08/04/2023 Exercise Vital Sign Answer Date Recorde d On average, how many days pe r week do you engage in moderate to strenuous exercise (like a brisk walk)? 3 days 08/04/2023 On average, how many minutes do you engage in exercise at this level? 60 min 08/04/2023 Hunger Vital Sign Answer Date Recorded Within the past 12 months, y ou worried that your food would run out before you got the money to buy more. Patient declined Within the past 12 months, t he food you bought just didn't last and you didn't have money to get more. Patient declined 12/2022 PRAPARE - Transportation Answer Date Re corded In the past 12 months, has l ack of transportation kept you from medical appointments or from getting medications? No 12/2022 In the past 12 months, has l ack of transportation kept you from meetings, work, or from getting things needed for daily living? No 08/04/2023 Housing Stability Vital Sign Answer Ronnie e Recorded In the last 12 months, was t here a time when you were not able to pay the mortgage or rent on time? Patient refused 08/04/20 23 In the last 12 months, how many places have you lived? 1 08/04/2023 In the last 12 months, was t here a time when you did not have a steady place to sleep or slept in a nursing home (including now)? No 08/04/2023 Comments No Sex and Gender Information Value Date Recorded Sex Assigned at Not on file Legal Sex Female 4:53 AM EDT Gender Identity Not on file Sexual Orientation Not on file documented as of this encounter Functional Status * Is the person deaf or does he/she have serious difficulty hearing? Answer Date of Assessment Author No 02/26/2025 2:06 PM EDT Sheila Ro MA * Is the person blind or does he/she have serious difficulty seeing even when wearing glasses? Answer Date of Assessment Author No 02/26/2025 2:06 PM EDT Sheila Ro MA * Does this person have serious difficulty walking or climbing stairs? Answer Date of Assessment Author No 02/26/2025 2:06 PM EDT Sheila Ro MA * Does this person have difficulty dressing or bathing? Answer Date of Assessment Author No 02/26/2025 2:06 PM EDT Sheila Ro MA * Because of a physical, mental or emotional condition, does this person have difficulty doing errands alone such as visiting a doctor's office or shopping? Answer Date of Assessment Author No 02/26/2025 2:06 PM EDT Sheila Ro MA documented as of this encounter Mental Status * Because of a physical, mental or emotional condition, does this person have serious difficulty concentrating, remembering or making decisions? Answer Entry Date Author No 02/26/2025 2:06 PM EDT Sheila Ro MA documented in this encounter Ordered Prescriptions Prescription Sig Dispense Quantity Refills Last Filled Start Date End Date cloNIDine (CATAPRES) 0.1 mg Oral TabletIndications:A ttention deficit hyperactivity disorder (ADHD), combined type TAKE 2 TABLETS BY MOUTH NIGHTLY 60 Tablet 06/25/2025 ibuprofen (ADVIL;MOTRIN) 400 mg Oral Tablet TAKE 1 TABLET BY MOUTH EVERY SIX HOURS WITH FOOD NEEDED FOR PAIN 120 Tablet 06/25/2025 documented in this encounter Plan of Treatment Not on file documented as of this encounter Goals Goal Patient Goal Type Associated Problems Recent Progress Patient-Stated? Author Blood Pressure < 140/90 Blood Pressure 110/74(2024 2:07 PM EDT) No Lanie Jung CMA BMI (Calculated) < 30 General 24.5(02/27/20 2:07 PM EDT) No Lanie Jung CMA Maintain a healthy diet, exercise regularly and maintain an ideal body weight General No Tamara Parra RMA HEMOGLOBIN A1C < 7.0 Result Component 10.6(02/27/20 2:50 PM EDT) No Martha Rahman RN documented as of this encounter Visit Diagnoses Diagnosis Attention deficit hyperactivity disorder (ADHD), combined type documented in this encounter Discontinued Medications Medication Sig Discontinue Reason Start Date End Da te cloNIDine (CATAPRES) 0.1 mg Oral TabletIndications:Attentio n deficit hyperactivity disorder (ADHD), combined type Take 2 Tabs by mouth nightly. 12/25/2024 06/25/2025 ibuprofen (ADVIL;MOTRIN) 400 mg Oral Tablet TAKE 1 TABLET BY MOUTH EVERY 6 HOURS WITH FOOD NEEDED FOR PAIN 12/25/2024 06/25/2025 documented as of this encounter Care Teams Survey Director Relationship Specialty Start Date End Date Aki Guevara DO [address] [place] [address] PCP - General Family Medicine 03/14/16 documented as of this encounter
--- OUTSIDE RECORDS SUMMARY | 2025-07-06 16:52 | XMS_ITS | Encounter Summary ---
Author Organization [facility] Address [address] [place] [id number] Care Team Providers Care Rn New Graduate Name Role Phone Aubrey Gayle M.D. Primary Care Provider [phone] Encounter Details Date Type Department Care Team (Late st Contact Info) Description 07/25/2012 Abstract [facility] Division of Diabetes and Endocrinology [address] [place] [phone] Ann Leung, R.N. Social History Tobacco Use Types Packs/Day Years Used Date Smoking Tobacco: Never Smokeless Tobacco: Never Comments Unknown Sex and Gender Information Value Date Recorded Sex Assigned at Not on file Legal Sex Female 5:17 AM EST Gender Identity Not on file Sexual Orientation Not on file documented as of this encounter Plan of Treatment Not on file documented as of this encounter Procedures Procedure Name Priority Date/Time Associated Diagnosis Comments EXTERNAL LAB VITAMINS Routine 07/08/2012 EXTERNAL LAB THYROID Routine 07/08/2012 EXTERNAL LAB RENAL PROFILE (KIDNEY) Routine 07/08/2012 EXTERNAL LAB HGB A1C Routine 07/08/2012 EXTERNAL LAB CALCIUM BLOOD Routine 07/08/2012 documented in this encounter Results * External Lab Calcium Blood (07/08/2012) CALCIUM EXT 9.7 8.6 - 10.7 PERFORMING LAB IN NARRATIVE Yes 07/08/2012 Ann Reyna R.N. - 07/08/2012 Aubrey Gayle MD [facility] Provider EXTERNAL LAB ORDERABLES [place] l Result * External Lab HGB A1C (07/08/2012) GLYCOSATE HGB(HGB A1C) EXT 10.1 Comment:<=7% PERFORMING LAB IN NARRATIVE Yes 07/08/2012 Ann Reyna R.N. - 07/08/2012 Aubrey Gayle MD lab processing [facility] Provider EXTERNAL LAB ORDERABLES Edit ed * (ABNORMAL) External Lab Renal Profile (07/08/2012) SODIUM LEVEL EXT 137 135 - 143 POTASSIUM LEVEL EXT 4.2 3.5 - 5.0 CHLORIDE LEVEL EXT 100 98 - 108 CO2 LEVEL EXT 26 22 - 31 ANION GAP EXT 11 7 - 16 BUN EXT 14 7 - 19 CREATININE LEVEL EXT 0.4(A) 0.6 - 1.0 B/C RATIO EXT PERFORMING LAB IN NARRATIVE Yes GLUCOSE LEVEL EXT 354(A) 60 - 100 07/08/2012 Ann Reyna R.N. - 07/08/2012 Aubrey Gayle MD [facility] Provider EXTERNAL LAB ORDERABLES Edit ed * (ABNORMAL) External Lab Thyroid (07/08/2012) T3 EXT T3 UPTAKE EXT T3 TOTAL EXT TSH EXT 42.700(A) 0.300 - 5.00 T4 FREE EXT 0.6(A) 0.8 - 2.0 T4 EXT THYROID PEROXIDASE AB EXT T4 FREE EQUILIBRIUM DIALYSIS EXT THYROGLOBULIN EXT PERFORMING LAB IN NARRATIVE Yes 07/08/2012 Ann Reyna R.N. - 07/08/2012 Aubrey Gayle MD [facility] Historical Provider EXTERNAL LAB ORDERABLES Edit ed * External Lab Vitamins (07/08/2012) VITAMIN A LEVEL EXT VITAMIN B12 LEVEL EXT >1,000 239 - 931 VITAMIN B1 WHOLE BLOOD EXT VITAMIN E LEVEL EXT VITAMIN B2 LEVEL EXT 25OH VITAMIN D EXT VITAMIN D 1,25 EXT VITAMIN D LEVEL EXT VITAMIN D 25-OH LEVEL EXT 17.3 Comment:>=20.0 ng/ml VITAMIN D3 LEVEL EXT VITAMIN D-OH LEVEL EXT VITAMIN D2 LEVEL EXT PERFORMING LAB IN NARRATIVE Yes FOLATE SERUM 9.92 3.00 - 20.00 Comment:folic acid level 07/08/2012 Narrative Ann Leung, R.N. - 07/08/2012 Aubrey Gayle MD us Historical Provider EXTERNAL LAB ORDERABLES Edit ed documented in this encounter Visit Diagnoses Not on filedocumented in this encounter Care Teams Rn New Graduate Relationship Specialty Start Date End Date [place] [address] PCP - General External Family Practice 04/30/12 documented as of this encounter
--- OUTSIDE RECORDS SUMMARY | 2025-07-06 16:52 | XMS_ITS | Clinical Summary ---
Author Organization [facility] Address [address] [place] [address] Phone Care Team Providers Care Business Process Manager Name Role Phone Aki Guevara DO Primary Care Provider [phone] Allergies Active Allergy Reactions Criticality Noted Date Comments Prochlorperazine Other (See Comments) 3 anxiety Ondansetron Hcl 05/15/2011 Hives Medications dicyclomine (BENTYL) 10 mg capsule TAKE 1 CAPSULE BY MOUTH TWICE DAILY NEEDED 60 Cap 2 03/12/20 14 Active promethazine (PHENERGAN) 25 mg Oral TabletIndication s:AGE (acute gastroenteritis) Take 0.5 tablets by mouth every 6 hours as needed for Nausea. 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),Long-term insulin use (HCC),Long-term current use of high risk medication other than anticoagulant,No n compliance w medication regimen,Vitamin D deficiency INJECT 1 MG INTO THE MUSCLE FOR 1 DOSE 1 Each 5 07/11/20 21 Active DEXCOM G6 REGIONAL ENVIRONMENTAL MANAGER [facility] MiscIndications: 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 ICD10: (Dx Code: E10.65) 1 Each 07/22/20 21 Active Polysaccharide Iron Complex (PRO FE) 180 mg iron Oral Capsule Take 1 Capsule by mouth daily. 30 Capsule 04/06/20 23 Active insulin glargine (LANTUS, BASAGLAR) 100 unit/mL (3 mL) SubQ Insulin PenIndications:T ype 1 diabetes mellitus with nephropathy (HCC),Type 1 diabetes mellitus without complication 06/12/20 23 Active ONETOUCH DELICA PLUS LANCET 33 gauge [facility] MiscIndications: Type 1 diabetes mellitus without complication test glucose as directed 6 times daily 100 Each 11 09/04/20 24 Active ONETOUCH ULTRA TEST [facility] StripIndications :Type 1 diabetes mellitus with hyperglycemia (HCC) Check glucose levels three times a day 50 Strip 10/07/19 25 Active lansoprazole (PREVACID) 30 mg Oral Capsule, Delayed Release(E.C.)Ind ications:Gastroe sophageal reflux disease with esophagitis without hemorrhage Take 1 Capsule by mouth daily. for stomach 100 Capsule 2 11/04/19 25 Active buPROPion (WELLBUTRIN SR) 150 mg Oral tablet sustained-releas e 12 hr Take 1 Tablet by mouth daily. 100 Tablet 2 11/04/19 25 Active atorvastatin (LIPITOR) 40 mg Oral TabletIndication s:Hypercholester olemia Take 1 tab by mouth every evening for cholesterol. ( NEED TO BE SEEN BY PRESCRIBER) 100 Tablet 2 11/04/19 25 Active cetirizine (ZYRTEC) 10 mg Oral Tablet Take 1 Tab by mouth daily. for allergies/sin us 30 Tablet 5 01/21/20 25 Active lisinopriL (PRINIVIL;ZESTRI L) 2.5 mg Oral TabletIndication s:Type 1 diabetes mellitus without complication Take 1 Tablet by mouth daily. 100 Tablet 2 03/23/20 25 Active lidocaine (LIDODERM) 5 % Top Adhesive Patch, Medicated APPLY 1 PATCH TO PAINFUL AREA LEAVE ON FOR 12 HOURS THEN REMOVE FOR 12 HOURS 30 Patch 5 04/17/20 25 Active LEVOthyroxine (SYNTHROID) 100 mcg Oral Tablet Take 1 Tablet by mouth daily. 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 Follow package directions to apply sensor for continuous blood glucose monitoring. Change sensor every 10 days. 3 Each 5 05/27/20 25 Active insulin lispro (HUMALOG) 100 unit/mL SubQ Insulin PenIndications:T ype 1 diabetes mellitus without complication Inject up to 50 units a day in divided doses, as directed. 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),Long-term insulin use (HCC),Long-term current use of high risk medication other than anticoagulant Use to check blood sugar every 90 days 1 Each 06/24/20 25 Active ibuprofen (ADVIL;MOTRIN) 400 mg Oral Tablet TAKE 1 TABLET BY MOUTH EVERY SIX HOURS WITH FOOD NEEDED FOR PAIN 120 Tablet 06/25/20 25 Active cloNIDine (CATAPRES) 0.1 mg Oral TabletIndication s:Attention deficit hyperactivity disorder (ADHD), combined type TAKE 2 TABLETS BY MOUTH NIGHTLY 60 Tablet 06/25/20 25 Active SENNA PLUS 8.6-50 mg Oral Tablet TAKE 1 TABLET BY MOUTH DAILY NEEDED 30 Tablet 06/24/20 25 Active LANTUS SOLOSTAR U-100 INSULIN 100 unit/mL (3 mL) SubQ Insulin PenIndications:T ype 1 diabetes mellitus with nephropathy (HCC),Type 1 diabetes mellitus without complication INJECT 27 UNITS EVERY EVENING 27 mL 06/24/20 25 Active ferrous sulfate (FEROSUL) 325 mg (65 mg iron) Oral Tablet TAKE 1/2 TABLET BY MOUTH DAILY FOR IRON SUPPLEMENT 15 Tablet 06/24/20 25 Active LANTUS SOLOSTAR U-100 INSULIN 100 unit/mL (3 mL) SubQ Insulin PenIndications:T ype 1 diabetes mellitus with nephropathy (HCC),Type 1 diabetes mellitus without complication inject 27 units every evening. 15 mL 5 08/08/20 24 025 Discontinued ferrous sulfate (FEROSUL) 325 mg (65 mg iron) Oral Tablet TAKE 1/2 TABLET BY MOUTH DAILY FOR IRON SUPPLEMENT 15 Tablet 5 12/26/19 25 025 Discontinued cloNIDine (CATAPRES) 0.1 mg Oral TabletIndication s:Attention deficit hyperactivity disorder (ADHD), combined type Take 2 Tabs by mouth nightly. 60 Tablet 5 12/26/19 25 025 Discontinued ibuprofen (ADVIL;MOTRIN) 400 mg Oral Tablet TAKE 1 TABLET BY MOUTH EVERY 6 HOURS WITH FOOD NEEDED FOR PAIN 120 Tablet 5 12/26/19 25 025 Discontinued senna-docusate (STIMULANT LAXATIVE PLUS) 8.6-50 mg Oral Tablet Take 1 Tablet by mouth as needed. 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 1 Each 05/27/20 25 025 Discontinued Active Problems Patient Care Coordination No te Formatting of this note migh t be different from the original. UDS positive for marijuana (02/13/18) No Controlled medications from [facility] 07/09/15 As expected. Controled substance contract 05/01/2012 Stimulant contract 05/01/2012 soapp 05/01/2012 HCC audit completed by Fatemeh Rodgers RN on 04/22/2021. 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 Attention deficit disorder 07/25/2012 Overview (09/07/2015): Overview: Treated by PCP - on Adderall History of disease 07/24/2012 Overview (09/07/2015): Overview: Medicated by PCP with clonidine and Seroquel History of insomnia 07/24/2012 Overview (04/27/2020): Overview: Medicated by PCP with clonidine and Seroquel Hypothyroid 04/28/2011 Insulin dependent diabetes mellitus type IA 04/01 Type 1 diabetes mellitus 07/22/2010 Assessment & Plan (02/26/2025 2:29 PM EDT): Recommended eval by endo, patient denying at this time Orders: MICROALBUMIN/CREATININE RATIO URINE; Future POCT GLYCATED HEMOGLOBIN, TOTAL gabapentin (NEURONTIN) 800 mg Oral Tablet; Take 1 Tablet by mouth 4 times daily. titr Assessment & Plan (08/08/2024 3:06 PM EST): Orders: LIPID SCREEN; Future LANTUS SOLOSTAR U-100 INSULIN 100 unit/mL (3 mL) SubQ Insulin Pen; inject 27 units every evening. Assessment & Plan (08/08/2024 3:06 PM EST): Orders: LIPID SCREEN; Future LANTUS SOLOSTAR U-100 INSULIN 100 unit/mL (3 mL) SubQ Insulin Pen; inject 27 units every evening. gabapentin (NEURONTIN) 800 mg Oral Tablet; Take 1 Tablet by mouth 4 times daily. Hyperglycemia 11/11/2009 Attention deficit hyperactivity disorder (ADHD) Precipitous drop in hematocrit Insomnia, unspecified Resolved Problems Problem Noted Date Diagnosed Date Resolved Date DM (diabetes mellitus) 04/28/201104/28 Thyroid disease 06/23/2010 06/23/2010 Encounters Date Type Department Care Team Description 06/23/2025 Refill [facility] [address] [place] [address] Nelson Aleman MD Medication Refill 06/23/2025 Refill [facility] [address] [place] [id number] Aki Guevara, DO Medication Refill 05/27/2025 Telephone [facility] [address] [place] [address] Aki Guevara, DO Refill 04/16/2025 Refill [facility] [address] [place] [address] Aki Guevara, DO Medication Refill from Last 3 Months Immunizations Immunization Administration Dates Next Due DTaP 06/16/2004, 3,2000,09/17,2000 HPV 9 Valent 03/16/2022 Hep B/HiB 05/21/2001,2000,2000 Hepatitis A, Ped/Adol, 2 Dose 09/08/2016 IPV 06/16/2004, 1,2000,09/17 Influenza Seasonal Injectable PF 07/24/2012 Influenza Vaccine Quadrivalent PF 07/23/2013 Influenza Vaccine, Unspecifi ed Formulation 08/10/2011 MMR 06/16/2004,07/09/2003 Meningococcal Conjugate 09/08/2016,05/22/2011 Meningococcal MCV4, Unspecif ied Formulation 09/08/2016,05/22/2011 Tdap 07/09/2018,05/22/2011 Varicella 05/22/2011,05/21/2001 Surgical History Surgery Date Site/Laterality Comments DENTAL SURGERY LAPAROSCOPIC APPENDECTOMY 12/22/2020 N/A laparoscopic appendectomy; Surgeon: Ana Lombardi MD; Location: [facility] MAIN OR; Service: General APPENDECTOMY Medical History Medical History Date Comments ADHD (attention deficit hyperactivity disorder) Diabetes mellitus (HCC) Thyroid disease Insomnia Attention deficit disorder with hyperactivity(31 4.01) Precipitous drop in hematocrit Insomnia, unspecified Hypothyroid 04/28/2011 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 Somewhat hard 08/04/2023 PHQ-2 Answer Date Recorded PHQ-2 Total Score 0 02/26/2025 [facility] - Occupational Stress [...] place to sleep or slept in a long term (including now)? No 08/04/2023 Comments No Sex and Gender Information Value Date Recorded Sex Assigned at Not on file Legal Sex Female 4:53 AM EDT Gender Identity Not on file Sexual Orientation Not on file Last Filed Vital Signs Vital Sign Reading Time Taken Comments Blood Pressure 110/74 02/26/2025 2:07 PM EDT Pulse 92 08/01/2023 5:10 PM EDT Temperature 36.7 C (98.1 F) 08/08/2024 2:41 PM EST Respiratory Rate 16 08/01/2023 5:10 PM EDT Oxygen Saturation 100% 08/01/2023 7:05 PM EDT Inhaled Oxygen Concentration - - Weight 51.3 kg (113 lb) 02/26/2025 2:07 PM EDT Height 144.8 cm (4' 9 ) 02/26/2025 2:07 PM EDT Body Mass Index 24.45 02/26/2025 2:07 PM EDT Plan of Treatment Health Maintenance Due Date Last Done Comments Pneumococcal Vaccine 0-49 (1 of 2 - PCV) 2019 Cervical Cancer Screening 2021 Pap Smear 2021 COVID-19 Vaccine ( season) 2025 Influenza Vaccine (#1) 2025 7 (Declined), 06/16/2016 (Declined), 09/07/2015 (Declined), Additional history exists Diabetic Eye Exam 07/29/2025 07/29/2023 Hemoglobin A1c 08/29/2025 02/26/2025, 11/02, 02/16/2023, Additional history exists Annual Wellness Exam 02/26/2026 02/26/2025, 02/02/20 15 Kidney Health: eGFR 02/26/2026 02/26/2025, 11/23/2023, 08/01/2023, Additional history exists Kidney Health: uACR 02/26/2026 02/26/2025 Lipids 02/26/2026 02/26/2025, 11/02, 11/23/2023, Additional history exists DTaP/TDaP/Td (8 - Td or Tdap) 07/09/2028 07/09/2018, 05/22/2011, 06/16/2004, Additional history exists Hepatitis B Vaccine Completed 05/21/2001, 2000, 2000 HPV Addressed 03/16/2022, 0403/2015 (Declined) Overridden with the intention of not completing the topic Meningococcal B Vaccine Aged Out No l onger eligible based on patient's age to complete this topic Goals Goal Patient Goal Type Associated Problems [...] 2:50 PM EDT) No Martha Rahman RN Procedures Procedure Name Priority Date/Time Associated Diagnosis Comments POCT GLYCATED HEMOGLOBIN, TOTAL Routine 02/26/2025 2:50 PM EDT 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) MICROALBUMIN/CREATI NINE RATIO URINE Routine 02/26/2025 2:37 PM EDT 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) BASIC METABOLIC PANEL Routine 02/26/2025 2:37 PM EDT 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) LIPID SCREEN Routine 02/26/2025 2:37 PM EDT 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) from Last 3 Months or Most Recently Relevant to Health Maintenance Results * (ABNORMAL) POCT GLYCATED HEMOGLOBIN, TOTAL (02/26/2025 2:50 PM EDT) Hemoglobin A1C 10.6(A) 4 - 6 % SEP OFFICE Lot Number SEP OFFICE Expiration Date SEP OFFICE SeriAl # SEP OFFICE 02/26/2025 2:50 PM EDT [employer] DO POINT OF CARE TEST ORDERABLES F inal Result Performing Organization Address City/[facility] Co de Phone Number SEP OFFICE * MICROALBUMIN/CREATININE RATIO URINE (02/26/2025 2:37 PM EDT) Urine Microalb <12.0 mg/L 02/27/2025 12:27 AM EDT [employer] Urine Creatinine 84.9 mg/dL 02/28/20 25 12:27 AM EDT [employer] [employer] Ur Microalb/Creat 025 12:27 AM EDT [employer] Comment: Because the albumin level is below the level of detection in this urine specimen, the laboratory is unable to calculate a reliable albumin/creatinine ratio. Microalbuminuria is unlikely if the urine albumin concentration is less than 20- 30 mg/L in a random specimen. Urine STRUCTURE OF URINARY TRACT PROPER / Unknown 02/26/2025 2:37 PM EDT 02/26/2025 2:37 PM EDT [employer] DO URINE ORDERABLES Final Result Performing Organization Address [facility] Co de Phone Number [facility] [employer] [address] [facility] , [place] [address] * (ABNORMAL) LIPID SCREEN (02/26/2025 2:37 PM EDT) Cholesterol 230(H) <200 mg/dL 02/26/2025 9:59 PM EDT [facility] [employer], [employer] Comment: < 200 Desirable 200 - 239 Borderline High >= 240 High Triglyceride 274(H) <150 mg/dL 02/26/2025 9:59 PM EDT [facility], [facility] Comment: < 150 Normal 150 - 199 Borderline High 200 - 499 High >= 500 Very High HDL 48 >=40 mg/dL 02/26/2025 9:59 PM EDT [facility], [facility] Comment: > 60 Optimal 40 - 60 Acceptable < 40 Low LDL Calculated 133(H) <100 mg/dL 02/26/2025 9:59 PM EDT [facility], [facility] Comment: < 100 Optimal 100 - 129 Near or above optimal 130 - 159 Borderline High 160 - 189 High >= 190 Very High The National Institutes of Health (NIH) equation is used for all lipid panels that report calculated LDL (LDL-C). Non-HDL-C Calculated 182(H) <=129 mg/dL 02/26/2025 9:59 PM EDT [facility] Comment: <130 Desirable 130-159 Above Desirable 160-189 Borderline High 190-219 High >= 220 Very High Fasting Specimen? Unknown None 025 9:59 PM EDT [facility], [facility] Blood VENOUS BLOOD / Unknown Venipuncture / Unknown 02/26/2025 2:37 PM EDT 02/26/2025 2:37 PM EDT Aki Guevara DO CHEMISTRY ORDERABLES Final Resu lt [facility], [facility] [address] [facility] , [place] [address] * (ABNORMAL) BASIC METABOLIC PANEL (02/26/2025 2:37 PM EDT) Sodium 131(L) 136 - 145 mmol/L 02/26/2025 9:59 PM EDT [facility] Potassium 4.8 3.5 - 5.0 mmol/L 02/26/2025 9:59 PM EDT [facility] Chloride 96(L) 98 - 107 mmol/L 02/26/2025 9:59 PM EDT [facility] Total CO2 26 22 - 29 mmol/L 02/26/2025 9:59 PM EDT [facility] Anion Gap 9 7 - 16 mmol/L 02/26/2025 9:59 PM EDT [facility] Calcium 8.5(L) 8.6 - 10.4 mg/dL 02/26/2025 9:59 PM EDT [facility] Glucose Lvl 365(H) 70 - 99 mg/dL 02/26/2025 9:59 PM EDT [facility] BUN 14 6 - 20 mg/dL 02/26/2025 9:59 PM EDT [facility] Creatinine 0.90 0.51 - 1.30 mg/dL 02/26/2025 9:59 PM EDT [facility] eGFR (CKD-EPIcr 2020) 91 >=60 mL/min/1.7 3 m2 02/26/2025 9:59 PM EDT [facility] Comment:Estimated GFR was ca lculated using the CKD-EPIcr (2020) equation refit without race. The equation is recommended by the National Kidney Foundation - [place] [employer] Neph[employer] Task Force. Blood VENOUS BLOOD / Unknown Venipuncture / Unknown 02/26/2025 2:37 PM EDT 02/26/2025 2:37 PM EDT us Aki Guevara DO CHEMISTRY ORDERABLES Final Resu lt [facility], [facility] [address] [facility] [address] [place] [phone] from Last 3 Months or Most Recently Relevant to Health Maintenance Insurance [facility] [id number] [place] [address] [facility] [place] [place] [address] [facility] MEDICAID [place] Advance Directives For more information, please contact: [phone] * Full Code (Latest Code Status on File) Date Activated Date Inactivated Comments 07/09/2021 12:19 AM 07/10/2021 8:19 PM * Full Code Date Activated Date Inactivated Comments 12/22/2020 4:01 AM 12/22/2020 10:25 PM Care Teams Business Process Manager Relationship Specialty Start Date End Date Aki Guevara DO [address] [place] [address] PCP - General Family Medicine 03/14/16
--- OUTSIDE RECORDS SUMMARY | 2025-07-06 16:52 | XMS_ITS | Encounter Summary ---
Author Organization [place] [address] Care Team Providers Care Traffic Operations Manager Name Role Phone PaolaAki okeefe Primary Care Provider [phone] Reason for Visit * Reason Onset Date Comments Refill 05/27/2025 Encounter Details Date Type Department Care Team (Late Contact Info) Description 05/27/2025 Telephone [facility] [address] [place] [address] Paola, AkiDO eduardo [address] [place], [place] [id number] Refill Social History Tobacco Use Types Packs/Day [...] Date Recorded PHQ-2 Total Score 0 02/26/2025 [place] [facility] - Occupational Stress [...] place to sleep or slept in a fci (including now)? No 08/04/2023 Comments No Sex [...] Refills Last Filled Start Date End Date gabapentin (NEURONTIN) 800 mg Oral TabletIndications:T ype 1 diabetes mellitus with nephropathy (HCC) Take 1 Tablet by mouth 4 times daily. 120 Tablet 2 05/27/2025 Insulin Hope, Disposable, (BD ULTRA-FINE MINI PEN NEEDLE) 31 gauge x 3/16 Misc Needle USE UP TO 6 TO 8 TIMES PER DAY 200 Each 05/27/2025 insulin lispro (HUMALOG) 100 unit/mL SubQ Insulin PenIndications:Type 1 diabetes mellitus without complication Inject up to 50 units a day in divided doses, as directed. 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 Follow package directions to apply sensor for continuous blood glucose monitoring. Change sensor every 10 days. 3 Each 5 05/27/2025 LEVOthyroxine (SYNTHROID) 100 mcg Oral Tablet Take 1 Tablet by mouth daily. 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 1 Each 05/27/2025 documented in this encounter Miscellaneous Notes * Telephone Encounter - Chelsie Ro MA - 05/29/2025 3:56 PM EDT Not sure which medications need to be sent. Typically pharm can transfer medication to another pharm. * Telephone Encounter - Bridgette Ferraro - 05/29/2025 3:25 PM EDT Kezia from [facility] following up. Pt is switching all her RX care from [facility] to [facility]. Please transfer and sent RX's as they want to make sure she has what she needs before holiday weekend. 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) Long-term insulin use (HCC) Encounter for long-term (current) use of insulin Long-term current use of high risk medication other than anticoagulant Type 1 diabetes mellitus without complication Type I (juvenile type) diabetes mellitus without mention of complication, not stated as uncontrolled documented in this encounter Discontinued Medications Medication Sig Discontinue Reason Start Date End Da te DEXCOM G6 SENSOR Misc DeviceIndications:Insul in dependent diabetes mellitus type IA (HCC),Type 1 diabetes mellitus with hyperglycemia (HCC),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 Follow package directions to apply sensor for continuous blood glucose monitoring. Change sensor every 10 days. Reorder 09/23/2024 05/27/2025 LEVOthyroxine (SYNTHROID) 100 mcg Oral Tablet Take 1 Tab by mouth daily. 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 Reorder 02/21/2025 05/27/2025 insulin lispro (HUMALOG) 100 unit/mL SubQ Insulin PenIndications:Type 1 diabetes mellitus without complication Inject up to 50 units a day in divided doses, as directed. 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 Reorder 02/26/2025 05/27/2025 documented as of this encounter Care Teams Traffic Operations Manager Relationship Specialty Start Date End Date Aki Guevara DO [address] [place] [address] PCP - General Family Medicine 03/14/16 documented as of this encounter
--- OUTSIDE RECORDS SUMMARY | 2025-07-06 16:52 | XMS_ITS | Encounter Summary ---
Author Organization [place] [address] Care Team Providers Care Charger Operator Name Role Phone PaolaAki Primary Care Provider Reason for Visit * Reason Comments Medication Refill Encounter Details Date Type Department Care Team (Late Contact Info) Description 06/23/2025 Refill [facility] [address] [place] [id number] Aki Guevara DO [address] [place], [place] [id number] Medication Refill Social History Tobacco Use Types [...] Date Recorded PHQ-2 Total Score 0 02/26/2025 [facility] [place] [facility] - Occupational Stress [...] place to sleep or slept in a retirement (including now)? 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),Type 1 diabetes mellitus without complication INJECT 27 UNITS EVERY EVENING 27 mL 06/24/2025 SENNA PLUS 8.6-50 mg Oral Tablet TAKE 1 TABLET BY MOUTH DAILY NEEDED 30 Tablet 06/24/2025 DEXCOM G6 TRANSMITTER Misc DeviceIndications:I nsulin dependent diabetes mellitus type IA (HCC),Type 1 diabetes mellitus with hyperglycemia (HCC),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 ferrous sulfate - There is no CRS protocol for this medication. lantus - Future Visit: None Last Assessed Visit: 02/26/2025 Follow-Up: 08/29/2025 All protocols passed. Refills approved and sent to requesting pharmacy. Routed to [facility] if an appointment is needed. senna plus - There is no CRS protocol for this medication. documented in this encounter Plan of Treatment Not on file documented as of this encounter Goals Goal Patient Goal Type Associated Problems Recent Progress Patient-Stated? Author Blood Pressure < 140/90 Blood Pressure 110/74(2024 2:07 PM EDT) No Lanie Jung CMA BMI (Calculated) < 30 General 24.5(02/27/20 2:07 PM EDT) Lanie Leon CMA Maintain a healthy diet, exercise regularly [...] mellitus with nephropathy (HCC) Long-term insulin use ([facility]) Encounter for long-term (current) use of insulin Long-term current use of high risk medication other than anticoagulant Type 1 diabetes mellitus without complication Type I (juvenile type) diabetes mellitus without mention of complication, not stated as uncontrolled documented in this encounter Discontinued Medications Medication Sig Discontinue Reason Start Date End Da te insulin glargine (LANTUS) 100 unit/mL injection Inject into skin 16 units nightly Medication order 10/05/2011 11/05/2011 LANTUS SOLOSTAR U-100 INSULIN 100 unit/mL (3 mL) SubQ Insulin PenIndications: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 08/08/2024 06/24/2025 ferrous sulfate (FEROSUL) 325 mg (65 mg iron) Oral Tablet TAKE 1/2 TABLET BY MOUTH DAILY FOR IRON SUPPLEMENT 12/25/2024 06/24/2025 senna-docusate (STIMULANT LAXATIVE PLUS) 8.6-50 mg Oral Tablet Take 1 Tablet by mouth as needed. 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 05/27/2025 06/24/2025 documented as of this encounter Care Teams Charger Operator Relationship Specialty Start Date End Date Aki Guevara DO [address] [place] [address] PCP - General Family Medicine 03/14/16 documented as of this encounter
--- OUTSIDE RECORDS SUMMARY | 2025-07-06 16:52 | XMS_ITS | Encounter Summary ---
Author Organization [facility] Address [address] [place] [id number] Care Team Providers Care Trainer Name Role Phone Aubrey Gayle M.D. Primary Care Provider [phone] Encounter Details Date Type Department Care Team (Late st Contact Info) Description 07/25/2012 Abstract [facility] Division of Diabetes and Endocrinology [address] [place] [phone] Ann Leung, R.N. Type I (juvenile type) diabetes mellitus without mention of complication, uncontrolled (Primary Dx); Idiopathic short stature; Hypothyroid Social History Tobacco Use Types Packs/Day Years Used Date Smoking Tobacco: Never Smokeless Tobacco: Never Comments Unknown Sex and Gender Information Value Date Recorded Sex Assigned at Not on file Legal Sex Female 5:17 AM EST Gender Identity Not on file Sexual Orientation Not on file documented as of this encounter Plan of Treatment Not on file documented as of this encounter Results * POCT UR Albumin (Microalbumin)/Creatinine (07/23/2013 1:17 PM EDT) U ALBUMIN (MICROALBUMIN), POC 7.7 U CREATININE, POC 121.1 U MALB/CREAT RATIO, POC 6.4 0 - 30 Urine specimen (specimen) 07/23/2013 1:17 PM EDT us Ameena Corey APRN-[facility] OF CARE TESTING Final Result documented in this encounter Visit Diagnoses Diagnosis Type I (juvenile type) diabetes mellitus without mention of complication, uncontrolled- Primary Idiopathic short stature Short stature Hypothyroid Unspecified hypothyroidism documented in this encounter Care Teams Trainer Relationship Specialty Start Date End Date [place] [address] PCP - General External Family Practice 04/30/12 documented as of this encounter
--- NOTE | 2025-07-06 16:57 | XR_ITS ---
PROCEDURE INFORMATION: Exam: XR Left Knee Exam date and time: 07/06/2025 5:17 PM Age: 25 years old Clinical indication: Injury or trauma; Fall; Blunt trauma; Knee; Left; Additional info: Left medial knee pain after fall 2 weeks ago TECHNIQUE: Imaging protocol: Radiologic exam of the left knee. Views: 3 views. COMPARISON: CR XR ANKLE LT 2V 08/09/2023 5:51 PM FINDINGS: Bones/joints: No acute fracture or malalignment. Soft tissues: Unremarkable. IMPRESSION: No acute osseous findings.
[2025-07-06 17:52] VITALS: BP 140/72; PULSE 80; RESP 18; TEMP 36.7; O2SAT 98
== END 2025-07-06 17:58 | disposition home or self-care (01) ==
PROVIDERS: Emergency Provider Student in an Organized Health Care Education/Training Program; PCP Family Medicine
DX: S89.92XA Unspecified injury of left lower leg, initial encounter (principal); M25.562 Pain in left knee; W19.XXXA Unspecified fall, initial encounter
CPT/HCPCS: 73562; 99282; 99283